=== PATIENT | male | born 1945 | race Caucasian/White ===

== ENCOUNTER → 2025-04-05 11:37 | Outpatient (CLI) | payer MEDICARE, SELFPAY ==
--- NOTE | ~2025-04-05 | XR_ITS ---
Clinical Indication: Shortness of breath PA and lateral views of the chest: Comparison: 10/28/2007 Findings: The lungs are clear, without evidence of focal consolidation or pleural effusion. Cardiome diastinal silhouette is within normal limits. Bones and soft tissues are unremarkable. Impression: Normal chest. Reviewed, dictated and finalized at location . Impression: Normal chest.
== END ==
PROVIDERS: PCP Family Medicine; Visit Provider Family Medicine
DX: R06.02 Shortness of breath (principal)
CPT/HCPCS: 71046

== ENCOUNTER 2025-04-07 11:46 | Inpatient (IN) | payer MEDICARE, SELFPAY ==
[2025-04-07] VITALS (9 sets, daily range): BP systolic 99–130; BP diastolic 57–72; PULSE 62–84; RESP 16–19; TEMP 36.4–36.6; O2SAT 97–100; BMI 23.1
--- NOTE | ~2025-04-07 | CT_ITS ---
CTA chest PE abdomen pel Ordering provider: Ollie Medeiros MD History: . Chest pain, sob, syncope, weight loss . Comparison: None. Technique: CT angiogram chest was performed following timed intravenous injection of contrast. Thin s lice axial images and reformatted coronal images were obtained. Three dimensional reformatted images of the chest were also obtained using a [employer] workstation. Also, CT of the abdomen and pelvis was pe rformed with IV contrast. . Automated exposure control and iterative reconstruction technique were e mployed. The dose-length product was 623.69 mGy-cm. 100 mL Omnipaque 350 was given IV. A FINDINGS: CHEST: --PULMONARY ARTERIES: No pulmonary embolus. --VISUALIZED THORACIC INLET: Normal. --MEDIASTINUM: Aorta/coronary arteries: Mild atheromatous disease. Heart/other: The heart is not enlarged. Lymph nodes: No mediastinal or hilar adenopathy. --LUNGS: Nodule is seen in the right middle lobe measuring 5 mm. 2 mm nodule is seen in the middle lobe. No acute masses. No infiltrates or effusions. No pneumothorax . --MUSCULOSKELETAL: Bones: Age appropriate degenerative changes of the spine. Superficial soft tissues: The superficial soft tissues are normal. ABDOMEN/PELVIS: --MUSCULOSKELETAL: Superficial soft tissues: The superficial soft tissues are normal. Bones: Age appropriate degenerative changes of the spine. Bilateral hip osteoarthritic changes. Pubic symphysitis. --UPPER ABDOMINAL ORGANS: Liver: Fat infiltration. Gallbladder: Normal. Spleen: Normal. Stomach/duodenum: Sliding hiatus hernia.E Pancreas: Normal. Adrenals: Normal. Kidneys: Normal. --PELVIC ORGANS: The bladder is slightly underfilled with thickened wall. Evaluation for cystitis adv ised. Enlarged prostate. No bladder stones. --BOWEL AND MESENTERY: Colon: No evidence of diverticulitis. Normal appendix. Small Bowel: Normal. No obstruction. Peritoneum/mesentery: No free air or free fluid. No mesenteric lymphadenopathy. --RETROPERITONEUM: Mild atheromatous disease of the abdominal aorta. No retroperitoneal lymphadenop athy. IMPRESSION: CHEST: 1. No pulmonary embolism. 2. No acute cardiopulmonary pathology. 3. Nodules in the right middle lobe. 6 months follow-up advised. ABDOMEN/PELVIS: 1. No evidence of appendicitis, diverticulitis or intestinal obstruction. 2. Sliding hiatus hernia. 3. Thickened wall of the urinary bladder which may indicate cystitis. Enlarged prostate. 4. Fat infiltration of the liver. Reviewed, dictated and finalized at location A.
--- NOTE | ~2025-04-07 | CT_ITS ---
EXAMINATION: CT brain wo con DATE: 04/07/2025 16:41 INDICATION: recurrent falls . TECHNIQUE: Computed tomography (CT) of the head was performed without intravenous contrast. The mA wa s adjusted according to patient size. Iterative reconstruction technique was employed. The dose-lengt h product was 681.00 mGy-cm. COMPARISON: None. FINDINGS: No acute intracranial hemorrhage or extra-axial fluid collection. No hydrocephalus, mass, or herniation. No acute ischemic infarct. Unremarkable dural venous sinus attenuation. No acute osseous abnormality. The aerated spaces are clear. Residual contrast enhancement from prior contrasted CT examination. Atherosclerotic intracranial calc ifications. Mild atrophy and chronic white matter change. IMPRESSION: No acute intracranial process. Reviewed, dictated and finalized at location K.
--- NOTE | ~2025-04-07 | XR_ITS ---
EXAMINATION: XR chest 2V 04/07/2025 12:36 INDICATION: Dizziness. Shortness of breath. PROCEDURE: AP portable chest COMPARISON: Comparison to multiple prior studies sequentially, with oldest reviewed study dated 07/22. FINDINGS: The lungs are clear. The cardiomediastinal silhouette is within normal limits. There are no pleural effusions. There is no pneumothorax suspected. IMPRESSION: 1: NO ACUTE CARDIOPULMONARY DISEASE. Reviewed, dictated and finalized at location B.
--- NOTE | 2025-04-07 11:52 | ECG_ITS ---
Test Date: 2025-04-07 11:57:02 Measurements Intervals [place] Rate: 57 P: 48 HI: 117 QRS: 17 QRSD: 87 T: 7 QT: 425 QTc: 415 Interpretive Statements SINUS BRADYCARDIA WITH SHORT HI INTERVAL LOW QRS VOLTAGE IN PRECORDIAL LEADS [QRS DEFLECTION < 1.0 mV IN CHEST LEADS] NONSPECIFIC T-WAVE ABNORMALITY ABNORMAL ECG No previous ECG available for comparison Electronically Signed On 04-07-2025 14:20:34 CDT by Prosper Armenta M.D.
[2025-04-07] MEDS: SODIUM CHLORIDE 0.9% IV 2,000 ML 999 ML IV CONT (13:16)
--- NOTE | 2025-04-07 13:32 | ECG_ITS ---
Test Date: 2025-04-07 13:35:39 Measurements Intervals [place] Rate: 68 P: 65 [place]: 126 QRS: 36 QRSD: 85 T: 32 QT: 369 QTc: 395 Interpretive Statements SINUS RHYTHM LOW QRS VOLTAGE [QRS DEFLECTION < 0.5/1.0 mV IN LIMB/CHEST LEADS] SEPTAL MYOCARDIAL INFARCTION , OF INDETERMINATE AGE [40+ ms Q WAVE IN V1/V2] ST AND T-WAVE ABNORMALITY CONSIDER INFEROLATERAL ISCHEMIA ABNORMAL ECG Compared to ECG 04/07/2025 11:57:[address] SEGMENT DEPRESSION IS SEEN Electronically Signed On 04-07-2025 14:22:59 CDT by Prosper Armenta M.D.
[2025-04-07 13:36] LABS: Hematocrit 31.7 % (42.0-52.0); Hemoglobin 11.2 g/dL (14.0-18.0); Immature Granulocyte Percent A 0.3 % (0-0.5); Lymphocytes Absolute Auto 0.75 K/mm3 (0.9-3.2); Mean Corpuscular HGB Conc 35.3 g/dl (32-36); Mean Corpuscular Hemoglobin 36.6 pg (26-34); Mean Corpuscular Volume 103.6 fl (80-100); Nucleated Red Blood Cells Absolute Auto 0.000 K/mm3 (0.0-0.012); Nucleated Red Blood Cells Perc 0.0 % (0.0-0.2); Platelet Count Result 202 k/mm3 (150-375); Red Blood Count 3.06 M/mm3 (4.6-6.20); White Blood Count 8.7 K/mm3 (4.5-10.0)
--- NOTE | 2025-04-07 13:51 | ECG_ITS ---
Test Date: 2025-04-07 14:15:42 Measurements Intervals [place] Rate: 81 P: 61 [place]: 124 QRS: 31 QRSD: 86 T: 40 QT: 392 QTc: 457 Interpretive Statements SINUS RHYTHM WITH OCCASIONAL VENTRICULAR PREMATURE COMPLEXES WITH OCCASIONAL SUPRAVENTRICULAR PREMATURE COMPLEXES RIGHT ATRIAL ENLARGEMENT LOW QRS VOLTAGE [QRS DEFLECTION < 0.5/1.0 mV IN LIMB/CHEST LEADS] SEPTAL MYOCARDIAL INFARCTION , PROBABLY OLD [40+ ms Q WAVE IN V1/V2] ABNORMAL ECG Compared to ECG 04/07/2025 13:35:39 PVCS ARE NOW SEEN Electronically Signed On 04-07-2025 14:24:56 CDT by Prosper Armenta M.D.
[2025-04-07 14:00] LABS: Alanine Aminotransferase 28 U/L (6-50); Albumin Level 3.3 g/dL (3.5-5.1); Alkaline Phosphatase 82 U/L (38-126); Aspartate Amino Transferase 45 U/L (17-59); Bilirubin,Total 0.9 mg/dL (0.2-1.3); Blood Urea Nitrogen 18 mg/dL (9-20); Calcium 8.4 mg/dL (8.4-10.2); Carbon Dioxide 24 mmol/L (22-30); Estimated CRCL calculation 33 ml/min; Estimated Glomerular Filt Rate 46; Glucose 129 mg/dL (65-110); Total Protein 5.8 g/dL (6.3-8.2)
--- NOTE | 2025-04-07 14:00 | PC.NURSE ---
Patient reports sudden onset chest pain and SOB. Per verbal order patient gets repead EKG, nitro x3 doses at every 5 minutes, oxygen and dose of aspirin at this time.
--- NOTE | 2025-04-07 14:02 | PC.NURSE ---
1st dose of Nitro @ 1358 - pain decreased but not gone away, patient states that he arms are tingling. 2nd does of Nitro @ 1403 - 0/10 chest pain at this time. 3rd does of Nitro @ 1408 - held due to patient reporting 0/10 chest pain after second dose
[2025-04-07 14:08] LABS: Anion Gap 7 mmol/L (4-12); Chloride 101 mmol/L (98-107); Potassium 3.2 mmol/L (3.4-5.0); Sodium 132 mmol/L (137-145)
[2025-04-07] MEDS: NITROGLYCERIN SL 0.4 MG TABLET SUBLINGUAL (14:08)
[2025-04-07 14:11] LABS: Troponin I < 0.012 ng/mL (0.000-0.034)
[2025-04-07] MEDS: ASPIRIN 81 MG CHEWABLE TABLET 324 MG PO (14:11)
--- NOTE | 2025-04-07 14:13 | ECG_ITS ---
Test Date: 2025-04-07 13:52:47 Measurements Intervals [place] Rate: 79 P: 67 [place]: 134 QRS: 37 QRSD: 88 T: 135 QT: 387 QTc: 445 Interpretive Statements SINUS RHYTHM WITH SINUS ARRHYTHMIA LOW QRS VOLTAGE [QRS DEFLECTION < 0.5/1.0 mV IN LIMB/CHEST LEADS] SEPTAL MYOCARDIAL INFARCTION , OF INDETERMINATE AGE [40+ ms Q WAVE IN V1/V2] MODERATE T-WAVE ABNORMALITY, CONSIDER LATERAL ISCHEMIA [-0.1+ mV T-WAVE IN I/aVL/V5/V6] ABNORMAL ECG Compared to ECG 04/07/2025 13:35:39 No significant changes Electronically Signed On 04-08-2025 08:42:08 CDT by Prosper Armenta M.D.
--- NOTE | 2025-04-07 15:33 | ECG_ITS ---
Test Date: 2025-04-07 14:59:01 Measurements Intervals [place] Rate: 78 P: 64 ID: [id number] QRS: 7 QRSD: 86 T: 24 QT: 397 QTc: 453 Interpretive Statements SINUS RHYTHM PREVIOUS SEPTAL INFARCTION, LOW QRS VOLTAGE ABNORMAL ECG Compared to ECG 04/07/2025 14:15:42 Ventricular premature complex(es) no longer present Electronically Signed On 04-08-2025 08:44:08 CDT by Prosper Armenta M.D.
--- NOTE | 2025-04-07 16:14 | ED_ITS ---
HPI - General Adult General Chief complaint: Syncope Stated complaint: syncopy Time Seen by Provider: 04/07/25 11:59 History of Present Illness HPI narrative: This is a 79-year-old male with history of hypertension presenting for recurrent syncope. Patient says that he is passed out about 10 times a month since December Patient is frequently dizzy or lightheaded is precipitated by standing up. Patient has not sustained any serious injuries via falls during this time. Patient says all of this started after tyson COVID in December of this year. He states that he has had significant unintentional weight loss of around 20 lb. He says he does not have an appetite and has early satiety. His hypertension meds have not been adjusted since his weight loss any is currently taking losartan/hydrochlorothiazide and tamsulosin Patient also notes that he has chest pain that feels like pressure. associated with bilateral hand tingling that occurs once per day for several months. It is not triggered by exertion and he says it seems to be random. Typically resolved on his own. 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 Patient came to the hospital today because he was at the [employer] with some of his friends who had shot of fireball but then had a syncopal event. Patient notes that he had an episode of nausea vomiting and diarrhea yesterday. EMS was called and he was then brought to the hospital. Related Data Allergies Allergy/AdvReac Type Severity Reaction Status Date / Time erythromycin base AdvReac Unknown Anxiety Verified 04/05/25 09:48 lisinopril AdvReac Unknown Cough Verified 04/05/25 09:48 [facility] Family History Family History Mother Lung cancer Social History Social History Smoking status: Former smoker Exam 2 Narrative: APPEARANCE: No apparent distress. Head: atraumatic. EYES: EOMI, NOSE: Atraumatic NECK: Trachea midline RESPIRATORY: No increased rate of breathing clear to auscultation CARDIOVASCULAR: RRR, no peripheral edema ABDOMINAL: Non-distended, soft nontender MUSCULOSKELETAl: No obvious deformities NEURO: Alert. Moving 4/4 extremities SKIN:: Warm, dry. Normal color PSYCHIATRIC: Normal affect Course Vital Signs Vital signs: Vital Signs Temperature 97.6 F 04/07/25 11:43 Pulse Rate 81 04/07/25 11:43 Respiratory Rate 18 04/07/25 11:43 Blood Pressure 99/57 L 04/07/25 11:43 Pulse Oximetry 100 04/07/25 11:43 Oxygen Delivery Room Air 04/07/25 11:43 Temperature 97.6 F 04/07/25 11:43 Pulse Rate 78 04/07/25 16:55 Respiratory Rate 19 04/07/25 16:55 Blood Pressure 105/57 L 04/07/25 16:55 Pulse Oximetry 97 04/07/25 16:55 Oxygen Delivery Room Air 04/07/25 11:43 Medical Decision Making MDM Narrative Medical decision making narrative: -Course: 79-year-old male presenting for multiple complaints including persistent orthostatic symptoms, unexpected weight loss and recurrent chest pain. Patient had an episode of chest pain while in the emergency department. While his 1st EKG showed normal sinus rhythm, EKG taking during his episode of chest pain showed ST depressions in inferior and lateral leads. Patient received nitro,oxygen and aspirin with resolution of his pain and his EKG symptoms. Initial troponin undetectable. Second troponin is pending. Geovany consulted. No heparin at this time. In regards to his recurrent syncope, patient's blood pressures were low on arrival. He is still on losartan hydrochlorothiazide and tamsulosin all of which will lower his blood pressure. This would have been worsened by his N/V/D yesterday. Given his weight loss he may need to readjust his hypertension meds if he is still symptomatic despite fluid resusc. Patient was given 2 L of fluid with improvement in blood pressure. Patient has been developing recurrent chest pain with concurrent EKG changes during the episodes. I think cardiac syncope is less likely but that can be explored during this admission. CT PE w/ abdomen pelvis did not reveal a causative finding of his symptoms. White count 8.7. Hemoglobin 11.2 with an MCV of 103. This is a 2 point drop from 2 months ago. Patient denies also any source of bleeding. Potassium is 3.2 which is been repleted orally. CT brain unremarkable. Chest x-ray was clear. -DDX includes but is not limited to: Orthostatic hypotension, vasovagal syncope, cardiac syncope, alcohol intoxication, symptomatic anemia -Independent interpretation of studies: CT PE w/ abdomen pelvis did not reveal a causative finding of his symptoms. White count 8.7. Hemoglobin 11.2 with an MCV of 103. This is a 2 point drop from 2 months ago. Patient denies also any source of bleeding. Potassium is 3.2 which is been repleted orally. CT brain unremarkable. Chest x-ray was clear. Vital Signs Vital Signs: Vital Signs Temperature 97.6 F 04/07/25 11:43 Pulse Rate 81 04/07/25 11:43 Respiratory Rate 18 04/07/25 11:43 Blood Pressure 99/57 L 04/07/25 11:43 Pulse Oximetry 100 04/07/25 11:43 Oxygen Delivery Room Air 04/07/25 11:43 Temperature 97.6 F 04/07/25 11:43 Pulse Rate 78 04/07/25 16:55 Respiratory Rate 19 04/07/25 16:55 Blood Pressure 105/57 L 04/07/25 16:55 Pulse Oximetry 97 04/07/25 16:55 Oxygen Delivery Room Air 04/07/25 11:43 Lab Data 04/07/25 13:27 04/07/25 13:27 Labs: Lab Results 04/07/25 Range/Units 13:27 WBC 8.7 (4.5-10.0) K/mm3 RBC 3.06 L (4.6-6.20) M/mm3 Hgb 11.2 L (14.0-18.0) g/dL Hct 31.7 L (42.0-52.0) % MCV 103.6 H (80-100) fl MCH 36.6 H (26-34) pg MCHC 35.3 (32-36) g/dl RDW 12.8 (11.5-14.5) % Plt Count 202 (150-375) k/mm3 MPV 10.2 (7.4-10.4) fl Immature Gran % (Auto) 0.3 (0-0.5) % Neut % (Auto) 83.3 H (45.5-73.1) % Lymph % (Auto) 8.6 L (18.3-44.2) % Hayes % (Auto) 7.0 (2.6-8.5) % Eos % (Auto) 0.3 (0-4.4) % Baso % (Auto) 0.5 (0.2-1.2) % Lymph # (Auto) 0.75 L (0.9-3.2) K/mm3 Hayes # (Auto) 0.6 (0.1-0.6) K/mm3 Eos # (Auto) 0.0 (0-0.3) K/mm3 Baso # (Auto) 0.0 (0.0-0.1) K/mm3 Abs Immat Gran (auto) 0.03 (0.00-0.031) K/mm3 Absolute Neuts (auto) 7.2 H (1.3-6.7) K/mm3 Absolute Nucleated RBC 0.000 (0.0-0.012) K/mm3 Nucleated RBC % 0.0 (0.0-0.2) % Sodium 132 L (137-145) mmol/L Potassium 3.2 L (3.4-5.0) mmol/L Chloride 101 (98-107) mmol/L Carbon Dioxide 24 (22-30) mmol/L Anion Gap 7 (4-12) mmol/L BUN 18 (9-20) mg/dL Creatinine 1.48 H (0.7-1.3) mg/dL Estim Creat Clear Calc 33 ml/min Estimated GFR 46 L (59 - ) Glucose 129 H (65-110) mg/dL Calcium 8.4 (8.4-10.2) mg/dL Total Bilirubin 0.9 (0.2-1.3) mg/dL AST 45 (17-59) U/L ALT 28 (6-50) U/L Alkaline Phosphatase 82 (38-126) U/L Troponin I < 0.012 (0.000-0.034) ng/mL Total Protein 5.8 L (6.3-8.2) g/dL Albumin 3.3 L (3.5-5.1) g/dL Ethyl Alcohol < 10 (<10) mg/dL Discharge Plan Discharge Clinical Impression: Syncope, Chest pain, Dehydration Patient Disposition: Still a Patient Condition: Stable Patient Language: Bangladeshi Prescriptions: No Action losartan-hydrochlorothiazide 100-12.5 mg tablet 1 tablet PO DAILY Qty: 90 3RF tamsulosin 0.4 mg capsule 0.4 mg PO DAILY Qty: 180 1RF Rx Instructions: take 1-2 capsules daily. Follow-up/Referrals: Dinah Mckenzie DO [Primary Care Provider] -
[2025-04-07] MEDS: POTASSIUM CHLORIDE 20 MEQ PACKET (FOR LIQUID) 40 MEQ PO (16:32)
[2025-04-07 18:04] LABS: Troponin I < 0.012 ng/mL (0.000-0.034)
--- NOTE | 2025-04-07 18:47 | ADMGEN ---
This patient, Prosper Mir, was admitted to Medical Room 250-01. Patient/family oriented to hospital policies and general routines including ID bracelet, bed and alarms, visiting hours, pain management, procedures, bathroom and other care routines, personal items, smoking policy, room service/diet, and visiting hours. Information on how to activate the Rapid Response Team has been discussed. Patient/Family are encouraged to report perceived risks to care and to ask questions if they do not understand what they are told or what they should do.
[2025-04-07 20:23] LABS: Troponin I 0.014 ng/mL (0.000-0.034)
[2025-04-08] VITALS (13 sets, daily range): BP systolic 100–131; BP diastolic 53–62; PULSE 54–91; RESP 14–18; TEMP 36.3–36.6; O2SAT 96–100
--- NOTE | 2025-04-08 07:22 | PM.IMHP ---
H&P: HPI History of Present Illness Date/Time: 04/08/25 07:22 <Tanya Melendez, COLOR BLENDER - Last Filed: 04/08/25 15:26> Chief Complaint: Syncope and Chest pain <Arcenio Fortune, Student - Last Filed: 04/08/25 15:17> Narrative: 79 year old male with past medical history of HTN, BPH, and hyperlipidemia presents to the hospital complaining of multiple syncope events and chest pressure. Additionally, patient has unintentionally lost approximately 20 lbs over the last 8 months. Majority of weight loss experienced in the last 3 months following COVID in early December. Endorses decrease in appetite and early satiety since recovery from COVID. Syncope events started shortly after December and patient estimates 10 episodes of syncope. Notes dizziness and lightheaded daily if standing up to quickly. Pt HTN medications have not been adjusted in the last 10 years. Endorses chest pain/pressure that occurs intermittently at rest and with activity. Denies cardiac history. Brother has CAD, but no family history of cardiac /conditions. Chest pain will lead to bilateral arm & hand tingling that resolves on its own. Shortness of breath with chest pressure, but otherwise not experienced. Denies abdominal pain, recent N/V, vision abnormalities, urinary or bowel movement pain or abnormalities, lower extremity symptoms/edema, fever, chills, and night sweats. N/V will occur if patient over eats which he may try intentionally, occasional, due to recent weight loss. Smokes 3-4 cigars/day, drinks 1-2 drinks approx 3/week, primarily whiskey. Denies illicit drug use. Recently seen in PCP office on 04/05/25 due to chest pain & weight loss. Noted normal PSA from 07/2024. normal A1C, TSH, slightly elevated AST & Cr, stable CKD, & mildly enlarged thyroid. Thyroid US ordered, but not competed. Prior PCP notes from 2023 note colonoscopy from 07/2013 with tubular adenomas. Patient declines further evaluation via colonoscopy. Briefly discussed possible need to repeat colonoscopy due to prior findings. Patient check stools frequently for blood or abnormalities and states he has not observed any. In the ED, patient presented via EMS after syncope event at [facility]. Serial EKGs were conducted which showed ST depressions in inferior and lateral leads following chest pain. Troponin undetectable. Chest pain resolved following nitro, oxygen, and aspirin. Given 2L of IVF d/t low BP (99/57). CT PE w/ abdomen pelvis did not reveal a causative finding of his symptoms. White count 8.7. Hemoglobin 11.2 with an MCV of 103. This is a 2 point drop from 2 months ago. Patient denies also any source of bleeding. Potassium is 3.2 which is been repleted orally. CT brain unremarkable. Chest x-ray was clear. Pt is seen and examined. He is comfortable, calm, resting in bed. Denies chest pain, reports feeling 100% better. <Tanya Melendez, COLOR BLENDER - Last Filed: 04/08/25 15:26> 79 year old male with past medical history of HTN, BPH, and hyperlipidemia presents to the hospital complaining of multiple syncope events and chest pressure. Additionally, patient has unintentionally lost approximately 20 lbs over the last 8 months. Majority of weight loss experienced in the last 3 months following COVID in early December. Endorses decrease in appetite and aearly satiety since recovery from COVID. Syncope events started shortly after December and patient estimates 10 episodes of syncope. Notes dizziness and lightheaded daily if standing up to quickly. Pt HTN medications have not been adjusted in the last 10 years. Endorses chest pain/pressure that occurs intermittently at rest and with activity. Denies cardiac history. Brother has CAD, but no family history of cardiac /conditions. Chest pain will lead to bilateral arm & hand tingling that resolves on its own. Shortness of breath with chest pressure, but otherwise not experienced. Denies abdominal pain, recent N/V, vision abnormalities, urinary or bowel movement pain or abnormalities, lower extremity symptoms/edema, fever, chills, and night sweats. N/V will occur if patient over eats which he may try intentionally, occasional, due to recent weight loss. Smokes 3-4 cigars/day, drinks 1-2 drinks approx 3/week, primarily whiskey. Denies illicit drug use. Recently seen in PCP office on 04/05/25 due to chest pain & weight loss. Noted normal PSA from 07/2024. normal A1C, TSH, slightly elevated AST & Cr, stable CKD, & mildly enlarged thyroid. Thyroid US ordered, but not competed. Prior PCP notes from 2023 note colonoscopy from 07/2013 with tubular adenomas. Patient declines further evaluation via colonoscopy. Briefly discussed possible need to repeat colonoscopy due to prior findings. Patient check stools frequently for blood or abnormalities and states he has not observed any. In the ED, patient presented via EMS after syncope event at [facility]. Serial EKGs were conducted which showed ST depressions in inferior and lateral leads following chest pain. Troponin undetectable. Chest pain resolved following nitro, oxygen, and aspirin. Given 2L of IVF d/t low BP (99/57). CT PE w/ abdomen pelvis did not reveal a causative finding of his symptoms. White count 8.7. Hemoglobin 11.2 with an MCV of 103. This is a 2 point drop from 2 months ago. Patient denies also any source of bleeding. Potassium is 3.2 which is been repleted orally. CT brain unremarkable. Chest x-ray was clear. <Arcenio Fortune Student - Last Filed: 04/08/25 15:17> Review of Systems Review of Systems: All systems reviewed & are unremarkable except as noted in HPI and below <Arcenio Fortune Student - Last Filed: 04/08/25 15:17> FOR[facility]LY [facility], [facility]–1983 Family History Family History: Family History Mother Lung cancer <Tanya Melendez APRN - Last Filed: 04/08/25 15:26> Social History Social History: Social History Smoking status: Current every day smoker Tobacco type: cigars Second hand tobacco smoke exposure: No Alcohol intake: current Drinks per week: 6 Substance use: never Do You Feel Safe in your Home?: Yes Lack of Transportation: No Lack of Food: Never True Current Housing: I Have Housing Concerned About Future Housing: No Difficulty Paying Gas/Electric Bills: No Difficulty Paying for Meds: No Currently Unemployed: No Education: High School Diploma/GED Difficulty w/ Childcare or Family Care: No Spiritual care concerns: No <Tanya Melendez APRN - Last Filed: 04/08/25 15:26> Meds Home Medications and Allergies Home medications: Home Medications ?Medication ?Instructions ?Recorded ?Confirmed ?Type losartan 100 1 tablet PO DAILY HTN #90 tabs 06/29/24 04/07/25 Rx mg-hydrochlorothiazide 12.5 mg tablet tamsulosin 0.4 mg capsule 0.4 mg PO DAILY #180 caps 02/09/25 04/07/25 Rx <Tanya Melendez APRN - Last Filed: 04/08/25 15:26> Allergies/Adverse reactions: Allergies Allergy/AdvReac Type Severity Reaction Status Date / Time erythromycin base AdvReac Unknown Anxiety Verified 04/05/25 09:48 lisinopril AdvReac Unknown Cough Verified 04/05/25 09:48 <Tanya Melendez, COLOR BLENDER - Last Filed: 04/08/25 15:26> Vital Signs Vital Signs - 24 hr 04/07/25 11:43 04/07/25 12:46 04/07/25 13:05 Temperature 97.6 F Pulse Rate 81 62 65 Respiratory Rate 18 18 Blood Pressure 99/57 L 106/70 Pulse Oximetry 100 100 Oxygen Delivery Room Air 04/07/25 14:01 04/07/25 15:01 04/07/25 16:55 Temperature Pulse Rate 84 83 78 Respiratory Rate 16 18 19 Blood Pressure 130/68 109/62 105/57 L Pulse Oximetry 100 100 97 Oxygen Delivery 04/07/25 18:20 04/07/25 20:00 04/07/25 20:00 Temperature Pulse Rate 70 74 Respiratory Rate 18 Blood Pressure 119/72 Pulse Oximetry 100 Oxygen Delivery Room Air 04/07/25 21:20 04/08/25 00:00 04/08/25 00:29 Temperature 97.8 F 97.7 F Pulse Rate 70 58 L 75 Respiratory Rate 16 16 Blood Pressure 105/59 L 131/62 Pulse Oximetry 99 98 Oxygen Delivery 04/08/25 04:00 04/08/25 04:59 Temperature 97.8 F Pulse Rate 64 60 Respiratory Rate 14 Blood Pressure 100/53 L Pulse Oximetry 100 Oxygen Delivery <Tanya Melendez, COLOR BLENDER - Last Filed: 04/08/25 15:26> Exam Narrative: Const: General - comfortable and no acute distress HEENT: moist mucous membranes, PERRLA, EOMI, Supple without JVD and lymphadenopathy, mild thyroid enlargement Resp: normal effort, rate. Clear to auscultation. No wheezing, rhonchi, or rales. Cardio: Regular rate & Rhythm. Normal S1 & S2. No gallops, murmurs or rubs. Capillary refill 2-3 seconds Abdomen: Non-distended, soft, normal bowel sounds, no pulsatile masses Neuro: A&Ox4, CN 2-12 grossly intact Skin: warm, dry, intact, no rash, erythema, or lesions Extremity: No cyanosis, clubbing, or edema present. Pulses palpable and normal bilaterally. Active ROM to all four extremities. Psych: pleasant, cooperative, normal speech & affect <Arcenio Fortune, Student - Last Filed: 04/08/25 15:17> Const: General: comfortable <Tanya Melendez APRN - Last Filed: 04/08/25 15:26> H&P: Results Labs Labs: Short CBC 04/07/25 Range/Units 13:27 WBC 8.7 (4.5-10.0) K/mm3 Hgb 11.2 L (14.0-18.0) g/dL Hct 31.7 L (42.0-52.0) % Plt Count 202 (150-375) k/mm3 BMP 04/07/25 13:27 Sodium 132 L Potassium 3.2 L Chloride 101 Carbon Dioxide 24 BUN 18 Creatinine 1.48 H Glucose 129 H Calcium 8.4 Cardiac Enzymes 04/07/25 04/07/25 04/07/25 Range/Units 13:27 17:20 19:38 Troponin I < 0.012 < 0.012 0.014 (0.000-0.034) ng/mL Liver Function 04/07/25 Range/Units 13:27 Total Bilirubin 0.9 (0.2-1.3) mg/dL AST 45 (17-59) U/L ALT 28 (6-50) U/L Alkaline Phosphatase 82 (38-126) U/L Albumin 3.3 L (3.5-5.1) g/dL <Tanya Melendez APRN - Last Filed: 04/08/25 15:26> Assessment and Plan Assessment and plan (1) Syncope: Code(s): R55 - Syncope and collapse <Tanya Melendez APRN - Last Filed: 04/08/25 15:26> Status: Acute <Tanya Melendez APRN - Last Filed: 04/08/25 15:26> Assessment and Plan: 04/08: several syncope events over the last 3 months with chest pain/pressure intermittently. Recent unintentional [address] PE w/ abdomen pelvis did not reveal a causative finding of his symptoms. White count 8.7. Hemoglobin 11.2 with an MCV of 103. 2 point drop from 2 months ago. denies any source of bleeding. Potassium was 3.2 and currently being treated. CT brain unremarkable. Chest x-ray was clear. - DDx: orthostatic hypotension, vasovagal syncope, cardiac syncope, medication induced syncope, thyroid pathology vs other - recent weight loss but BP meds not adjusted- could be causing symptoms - Complete orthostatics - check TSH, Mg, CBC - trend CMP - continue KCl oral supplement. <Tanya Melendez APRN - Last Filed: 04/08/25 15:26> 04/08: several syncope events over the last 3 months with chest pain/pressure intermittently. Recent unintentional [address] PE w/ abdomen pelvis did not reveal a causative finding of his symptoms. White count 8.7. Hemoglobin 11.2 with an MCV of 103. 2 point drop from 2 months ago. denies any source of bleeding. Potassium was 3.2 and currently being treated. CT brain unremarkable. Chest x-ray was clear. - DDx: orthostatic hypotension, vasovagal syncope, cardiac syncope, medication induced syncope, thyroid pathology - Complete orthostatics - check TSH, Mg, CBC - trend BMP - continue KCl oral supplement. <Cruz Richard - Last Filed: 04/08/25 15:17> (2) Chest pain: Code(s): R07.9 - Chest pain, unspecified <Tanya Melendez APRN - Last Filed: 04/08/25 15:26> Status: Acute <Tanya Melendez COLOR BLENDER - Last Filed: 04/08/25 15:26> Assessment and Plan: 04/08: Intermittent ischemic type chest pain with and without activity for approx 6 months. accompanied by tingling in bilateral arms/hands. No cardiac history or family history. 1 brother with CAD. - Cardiology consulted: symptoms however are of significant concern and are associated with dynamic ST segment depression noted on his electrocardiogram and telemetry in the emergency room. Plan for diagnostic angiography on Thursday. - continue tele monitoring <Cruz Richard - Last Filed: 04/08/25 15:17> (3) Essential (primary) hypertension: Code(s): I10 - Essential (primary) hypertension <Tanya Melendez COLOR BLENDER - Last Filed: 04/08/25 15:26> Status: Acute <Tanya Melendez COLOR BLENDER - Last Filed: 04/08/25 15:26> Assessment and Plan: 04/08: BP low upon arrival of ED. Treated with IVF. BP continues to trend low. - hold losartan/HCTZ - continue to monitor <Arcenio Fortune Student - Last Filed: 04/08/25 15:17> (4) Benign prostatic hyperplasia with lower urinary tract symptoms: Code(s): N40.1 - Benign prostatic hyperplasia with lower urinary tract symptoms <Tanya Melendez COLOR BLENDER - Last Filed: 04/08/25 15:26> Status: Acute <Tanya Melendez COLOR BLENDER - Last Filed: 04/08/25 15:26> Assessment and Plan: 04/08 - continue tamsulosin - increase in frequency of urination at baseline. - Denies burning, pain, discoloration, or smell with urination <Arcenio Fortune Student - Last Filed: 04/08/25 15:17> (5) Mixed hyperlipidemia: Code(s): E78.2 - Mixed hyperlipidemia <Tanya Melendez COLOR BLENDER - Last Filed: 04/08/25 15:26> Status: Acute <Tanya Melendez COLOR BLENDER - Last Filed: 04/08/25 15:26> Assessment and Plan: - elevated triglycerides seen on most recent Lipid panel from 08/08/2024 - No treatment currently. <Cruz Richard - Last Filed: 04/08/25 15:17> Assessment and Plan: heart healthy diet. SCD/Pneumatics for DVT prophylactics until angiography. Switch to Lovenox after procedure. Full code <Cruz Richard - Last Filed: 04/08/25 15:17> Quality VTE Prophylaxis VTE prophylaxis: mechanical ordered <Tanya Melendez COLOR BLENDER - Last Filed: 04/08/25 15:26> Hospitalist MIPS Advance Care Plan I have confirmed that the patient's Advanced Care Plan is present, code status is documented, or surrogate decision maker is listed in patient medical record.: Yes <Tanya Melendez, COLOR BLENDER - Last Filed: 04/08/25 15:26> Medication Reconciliation I have utilized all available resources to obtain, update and review the patients current medications (includes all prescriptions, OTC, herbals, cannabis, and nutritional supplements).: Yes <Tanya Melendez, COLOR BLENDER - Last Filed: 04/08/25 15:26>
--- NOTE | 2025-04-08 10:43 | PM.CNCAR ---
Assessment and Plan Assessment and plan (1) Chest pain: Code(s): R07.9 - Chest pain, unspecified Status: Acute Plan This is a 79-year-old man who has hypertension and no previous cardiac history he is having episodes of intermittent nonexertional but ischemic type chest pain for about 6 months. There is a history of coronary disease in his 1 of his younger brothers but no family history of premature ischemic heart disease. He has been feeling poorly since a coronavirus infection in October and November of this year. Because of the poor appetite that has followed this he has lost some weight and he does have some decline in his renal function with rise in creatinine from is previous normal baseline. The symptoms however are of significant concern and are associated with dynamic ST segment depression noted on his electrocardiogram and telemetry in the emergency room. In this setting we should proceed diagnostic angiography. I discussed the reasoning for that in the procedure along with risks he is willing to proceed with this. It is not an emergency the symptoms have been going on for about 6 months. We will arrange for this on Thursday. Further recommendations will be forthcoming the results of his angiogram Prosper Armenta MD [facility] History of Present Illness History of Present Illness Consult date/time: 04/08/25 10:43 Reason For Visit: Recurrent Syncope Narrative: This is a 79-year-old man who I am seeing at the request of the hospitalist in consultation because of episodes of lightheadedness, what sounds like near syncope and also episodes of intermittent chest pain. The patient states he was enjoying fairly good health was taking medicine for hypertension but did not really have much in the way of medical problems otherwise and has been not doing well since he had a coronavirus infection in November of this year. His COVID infection resulted in the sensation of coughing loss of taste and smell and generalized weakness. Most of the symptoms have resolved after that and his taste and smell have returned but he has been feeling poorly with lack of appetite poor p.o. intake and early satiety. He also has done some vomiting of food if he eats more than small amount at a short period of time he has not had any of the symptoms prior to having COVID. Predating this he is also noticing symptoms of chest pain. He reports that he has been having symptoms of a intermittent relatively severe moderate to severe pressure-like substernal pain that happens in a nonexertional fashion. He says sometimes this will happen 2 or 3 times a day and then he med may have a week or 2 between episodes. This symptom is not occurring in an exertional fashion he does not have any DELEON orthopnea PND or edema. He has never had cardiac problems in the past. He had 1 of these episodes in the emergency room while he was being evaluated yesterday. He had 5 electrocardiograms done while he was down there in the ER which demonstrate nonspecific but variable amounts of inferolateral ST segment depression and 1 of the ECGs demonstrated some ventricular irritability. Because of this I am asked to see him in consultation. The symptoms of intermittent chest pain he believes have been going on for about 6 months. Because of low blood pressure his antihypertensive which has been losartan with hydrochlorothiazide has been on hold. His blood pressure is currently normal. He is resting comfortably in bed and does not have any other complaints. The episodes of chest pain are typically associated with a sense of dyspnea sometimes diaphoresis and paresthesias in the upper extremities bilaterally. Review of Systems Constitutional: Constitutional: Reports fatigue and Reports lethargy Eyes: Eyes: Reports no additional eye complaints ENT: Reports system reviewed and no additional complaints, except as documented Cardiovascular: Cardiovascular: Reports as per HPI and Reports chest pain Respiratory: Respiratory: Reports no additional respiratory complaints Gastrointestinal: Gastrointestinal: Reports as per HPI and Reports vomiting Musculoskeletal: Musculoskeletal: Reports no additional musculoskeletal complaints Integumentary/Breasts: Skin/Breast: Reports system reviewed and no additional complaints, except as docu Neurologic: Reports system reviewed and no additional complaints, except as documented Endocrine: Endocrine: Reports no additional endocrine complaints Hematologic/Lymphatic: Hematologic/Lymphatic: Reports no additional hematologic/lymphatic complaints Allergic/Immunologic: Allergic/Immunologic: Reports no additional allergic/immunologic complaints PENDING SALE TO [facility] Family History Family History Mother Lung cancer Social History Social History Smoking status: Current every day smoker Tobacco type: cigars Second hand tobacco smoke exposure: No Alcohol intake: current Drinks per week: 6 Substance use: never Do You Feel Safe in your Home?: Yes Lack of Transportation: No Lack of Food: Never True Current Housing: I Have Housing Concerned About Future Housing: No Difficulty Paying Gas/Electric Bills: No Difficulty Paying for Meds: No Currently Unemployed: No Education: High School Diploma/GED Difficulty w/ Childcare or Family Care: No Spiritual care concerns: No Meds Home Medications and Allergies Home Medications ?Medication ?Instructions ?Recorded ?Confirmed ?Type losartan 100 1 tablet PO DAILY HTN #90 tabs 06/29/24 04/07/25 Rx mg-hydrochlorothiazide 12.5 mg tablet tamsulosin 0.4 mg capsule 0.4 mg PO DAILY #180 caps 02/09/25 04/07/25 Rx Allergies Allergy/AdvReac Type Severity Reaction Status Date / Time erythromycin base AdvReac Unknown Anxiety Verified 04/05/25 09:48 lisinopril AdvReac Unknown Cough Verified 04/05/25 09:48 Vital Signs Vital Signs - 24 hr 04/07/25 11:43 04/07/25 12:46 04/07/25 13:05 Temperature 36.4 C Pulse Rate 81 62 65 Respiratory Rate 18 18 Blood Pressure 99/57 L 106/70 Pulse Oximetry 100 100 Oxygen Delivery Room Air 04/07/25 14:01 04/07/25 15:01 04/07/25 16:55 Temperature Pulse Rate 84 83 78 Respiratory Rate 16 18 19 Blood Pressure 130/68 109/62 105/57 L Pulse Oximetry 100 100 97 Oxygen Delivery 04/07/25 18:20 04/07/25 20:00 04/07/25 20:00 Temperature Pulse Rate 70 74 Respiratory Rate 18 Blood Pressure 119/72 Pulse Oximetry 100 Oxygen Delivery Room Air 04/07/25 21:20 04/08/25 00:00 04/08/25 00:29 Temperature 36.6 C 36.5 C Pulse Rate 70 58 L 75 Respiratory Rate 16 16 Blood Pressure 105/59 L 131/62 Pulse Oximetry 99 98 Oxygen Delivery 04/08/25 04:00 04/08/25 04:59 04/08/25 08:48 Temperature 36.6 C Pulse Rate 64 60 Respiratory Rate 14 Blood Pressure 100/53 L Pulse Oximetry 100 Oxygen Delivery Room Air 04/08/25 08:48 Temperature Pulse Rate 72 Respiratory Rate 16 Blood Pressure 115/62 Pulse Oximetry 96 Oxygen Delivery Exam Const: General: comfortable and no acute distress Other: Pleasant white male appearing his stated age watching television comfortable and cooperative no distress or complaints currently HENMT: Mouth: Yes moist mucous membranes Eyes: Sclera: sclerae normal Neck: Neck: supple and no JVD Resp: Effort & Inspection: normal respiratory effort Auscultation: clear to auscultation bilaterally Cardio: Rate: regular rate Rhythm: regular rhythm Other: No murmur no gallop GI: GI Palp: Yes Soft to palpation Auscultation: normal bowel sounds Skin: General skin exam: normal color Neuro: Other: Alert and oriented x3 Extrem: Other: No pitting edema, distal pulses are intact Results Labs and Meds 04/07/25 13:27 04/07/25 13:27 Lab results: Cardiac Enzymes 04/07/25 04/07/25 04/07/25 Range/Units 13: 17:20 19:38 AST 45 (17-59) U/L Troponin I < 0.012 < 0.012 0.014 (0.000-0.034) ng/mL CBC 04/07/25 Range/Units 13:27 WBC 8.7 (4.5-10.0) K/mm3 RBC 3.06 L (4.6-6.20) M/mm3 Hgb 11.2 L (14.0-18.0) g/dL Hct 31.7 L (42.0-52.0) % Plt Count 202 (150-375) k/mm3 Lymph # (Auto) 0.75 L (0.9-3.2) K/mm3 [place] # (Auto) 0.6 (0.1-0.6) K/mm3 Eos # (Auto) 0.0 (0-0.3) K/mm3 Baso # (Auto) 0.0 (0.0-0.1) K/mm3 Comprehensive Metabolic Panel 04/07/25 Range/Units 13:27 Sodium 132 L (137-145) mmol/L Potassium 3.2 L (3.4-5.0) mmol/L Chloride 101 (98-107) mmol/L Carbon Dioxide 24 (22-30) mmol/L BUN 18 (9-20) mg/dL Creatinine 1.48 H (0.7-1.3) mg/dL Glucose 129 H (65-110) mg/dL Calcium 8.4 (8.4-10.2) mg/dL AST 45 (17-59) U/L ALT 28 (6-50) U/L Alkaline Phosphatase 82 (38-126) U/L Total Protein 5.8 L (6.3-8.2) g/dL Albumin 3.3 L (3.5-5.1) g/dL Intake and Output 04/07/25 04/08/25 04/08/25 23:59 07:59 15:59 Intake Total 350 200 Balance 350 200 Intake: Oral 350 200 Other: # Unmeasured Voids 3
[2025-04-08] MEDS: TAMSULOSIN HCL 0.4 MG CAPSULE PO (11:17)
[2025-04-08] MEDS: POTASSIUM CHLORIDE 20 MEQ ER TABLET PO (15:13)
[2025-04-08 15:58] LABS: Alanine Aminotransferase 25 U/L (6-50); Albumin Level 2.9 g/dL (3.5-5.1); Alkaline Phosphatase 64 U/L (38-126); Anion Gap 4 mmol/L (4-12); Aspartate Amino Transferase 43 U/L (17-59); Bilirubin,Total 0.8 mg/dL (0.2-1.3); Blood Urea Nitrogen 16 mg/dL (9-20); Calcium 8.1 mg/dL (8.4-10.2); Carbon Dioxide 24 mmol/L (22-30); Chloride 105 mmol/L (98-107); Estimated CRCL calculation 36 ml/min; Estimated Glomerular Filt Rate 49; Glucose 96 mg/dL (65-110); Potassium 3.6 mmol/L (3.4-5.0); Sodium 133 mmol/L (137-145); Total Protein 5.4 g/dL (6.3-8.2)
[2025-04-09] VITALS (8 sets, daily range): BP systolic 107–128; BP diastolic 60–67; PULSE 55–80; RESP 14–18; TEMP 36.6–36.8; O2SAT 97–100
[2025-04-09 05:26] LABS: Magnesium 1.4 mg/dL (1.6-2.3)
[2025-04-09 05:57] LABS: Thyroid Stimulating Hormone Reflex 2.000 uIU/mL (0.465-4.68)
--- NOTE | 2025-04-09 07:42 | P.PNIM_ITS ---
Progress Note: A&P Assessment and Plan (1) Syncope: Code(s): R55 - Syncope and collapse <Tanya Melendez, TEMPORARY STAFF ACCOUNTANT - Last Filed: 04/09/25 12:30> Status: Acute <Tanya Melendez, TEMPORARY STAFF ACCOUNTANT - Last Filed: 04/09/25 12:30> Assessment and Plan: 04/08: several syncope events over the last 3 months with chest pain/pressure intermittently. Recent unintentional [address] PE w/ abdomen pelvis did not reveal a causative finding of his symptoms. White count 8.7. Hemoglobin 11.2 with an MCV of 103. 2 point drop from 2 months ago. denies any source of bleeding. Potassium was 3.2 [address] being treated[address] brain unremarkable. Chest x-ray was clear. - DDx: orthostatic hypotension, vasovagal syncope, cardiac syncope, medication induced syncope, thyroid pathology vs other - recent weight loss but BP meds not adjusted- could be causing symptoms - Complete orthostatics - check TSH, Mg, CBC - trend CMP - continue KCl oral supplement. <Tanya Melendez, TEMPORARY STAFF ACCOUNTANT - Last Filed: 04/09/25 12:30> 04/08: several syncope events over the last 3 months with chest pain/pressure intermittently. Recent unintentional [address] PE w/ abdomen pelvis did not reveal a causative finding of his symptoms. White count 8.7. Hemoglobin 11.2 with an MCV of 103. 2 point drop from 2 months ago. denies any source of bleeding. Potassium was 3.2 and currently being treated. CT brain unremarkable. Chest x-ray was clear. - DDx: orthostatic hypotension, vasovagal syncope, cardiac syncope, medication induced syncope, thyroid pathology vs other - recent weight loss but BP meds not adjusted- could be causing symptoms - Complete orthostatics - check TSH, Mg, CBC - trend CMP - continue KCl oral supplement. 04/09 - Orthostatics from 04/08: Sitting - 112/62, HR 75; Standing - 102/55, HR 76. Supine not completed at the time of these 2 measurements. Consider retesting to have Supine v Standing comparison pending patients progression. - TSH is 2.000 (2.070 on 03/01/25) - Mg is 1.4 - will supplement with Mag-Ox - check CBC - K+ is 3.6 - continue to supplement - Low protein & Albumin - add dietary supplementaion <Arcenio Fortune Student - Last Filed: 04/09/25 11:16> (2) Chest pain: Code(s): R07.9 - Chest pain, unspecified <Tanya Melendez, TEMPORARY STAFF ACCOUNTANT - Last Filed: 04/09/25 12:30> Status: Acute <Tanya Melendez TEMPORARY STAFF ACCOUNTANT - Last Filed: 04/09/25 12:30> Assessment and Plan: 04/08: Intermittent ischemic type chest pain with and without activity for approx 6 months. accompanied by tingling in bilateral arms/hands. No cardiac history or family history. 1 brother with CAD. - Cardiology consulted: symptoms however are of significant concern and are associated with dynamic ST segment depression noted on his electrocardiogram and telemetry in the emergency room. Plan for diagnostic angiography on Thursday. - continue tele monitoring 04/09 - diagnostic angiography tomorrow- NPO at midnight - continue tele monitoring <Tanya Melendez, TEMPORARY STAFF ACCOUNTANT - Last Filed: 04/09/25 12:30> 04/08: Intermittent ischemic type chest pain with and without activity for approx 6 months. accompanied by tingling in bilateral arms/hands. No cardiac history or family history. 1 brother with CAD. - Cardiology consulted: symptoms however are of significant concern and are associated with dynamic ST segment depression noted on his electrocardiogram and telemetry in the emergency room. Plan for diagnostic angiography on Thursday. - continue tele monitoring 04/09 - diagnostic angiography tomorrow. - continue tele monitoring <Arcenio Fortune, Student - Last Filed: 04/09/25 11:16> (3) Essential (primary) hypertension: Code(s): I10 - Essential (primary) hypertension <Tanya Melendez APRN - Last Filed: 04/09/25 12:30> Status: Acute <Tanya Melendez TEMPORARY STAFF ACCOUNTANT - Last Filed: 04/09/25 12:30> Assessment and Plan: 04/08: BP low upon arrival of ED. Treated with IVF. BP continues to trend low. - hold losartan/HCTZ - continue to monitor <Tanyaolga Melendez TEMPORARY STAFF ACCOUNTANT - Last Filed: 04/09/25 12:30> 04/08: BP low upon arrival of ED. Treated with IVF. BP continues to trend low. - hold losartan/HCTZ - continue to monitor 04/09 - BP has been within normal limits since holding losartan/HCTZ. Symptomatically, patient has improved and feels much better the last 24 hours. - continue to hold & trend BP <Arcenio Fortune, Student - Last Filed: 04/09/25 11:16> (4) Benign prostatic hyperplasia with lower urinary tract symptoms: Code(s): N40.1 - Benign prostatic hyperplasia with lower urinary tract symptoms <Tanya Melendez TEMPORARY STAFF ACCOUNTANT - Last Filed: 04/09/25 12:30> Status: Acute <Tanya Melendez TEMPORARY STAFF ACCOUNTANT - Last Filed: 04/09/25 12:30> Assessment and Plan: 04/08 - continue tamsulosin - increase in frequency of urination at baseline. - Denies burning, pain, discoloration, or smell with urination <Tanya hurst TEMPORARY STAFF ACCOUNTANT - Last Filed: 04/09/25 12:30> (5) Mixed hyperlipidemia: Code(s): E78.2 - Mixed hyperlipidemia <Tanya Melendez TEMPORARY STAFF ACCOUNTANT - Last Filed: 04/09/25 12:30> Status: Acute <Tanya Melendez TEMPORARY STAFF ACCOUNTANT - Last Filed: 04/09/25 12:30> Assessment and Plan: - elevated triglycerides seen on most recent Lipid panel from 08/08/2024 - No treatment currently. <Tanya Melendez TEMPORARY STAFF ACCOUNTANT - Last Filed: 04/09/25 12:30> Assessment and Plan: heart healthy diet, NPO at midnight SCD/Pneumatics for DVT prophylactics until angiography. Switch to Lovenox after procedure. Full code <Tanya Melendez TEMPORARY STAFF ACCOUNTANT - Last Filed: 04/09/25 12:30> Subjective Date/time seen: 04/09/25 07:42 <Tanya Melendez TEMPORARY STAFF ACCOUNTANT - Last Filed: 04/09/25 12:30> Interval history: 04/09 - upright in bed upon exam. Pt states he is doing much better today. He denies any chest pain/pressure or dyspnea since admission. Denies lightheaded or dizziness upon changing positions or standing which he experienced daily prior to admission. Denies abdominal pain, N/V, headaches, vision changes, and urinary abnormalities. Has not had a bowel movement since yesterday. Denies need for miralax. <Tanya Melendez, TEMPORARY STAFF ACCOUNTANT - Last Filed: 04/09/25 12:30> 04/09 - upright in bed upon exam. Pt states he is doing much better today. He denies any chest pain/pressure or dyspnea since admission. Denies lightheaded or dizziness upon changing positions or standing which he experienced daily prior to admission. Denies abdominal pain, N/V, headaches, vision changes, and urinary abnormalities. Has not had a bowel movement since yesterday. <Arcenio Fortune, Student - Last Filed: 04/09/25 11:16> Review of Systems Review of Systems: All systems reviewed & are unremarkable except as noted in HPI and below <Tanya Melendez TEMPORARY STAFF ACCOUNTANT - Last Filed: 04/09/25 12:30> Exam Const: General: comfortable <Tanya Melendez, TEMPORARY STAFF ACCOUNTANT - Last Filed: 04/09/25 12:30> Objective Data Vital Signs Vital Signs: Vital Signs - 24 hr 04/08/25 08:00 04/08/25 08:48 04/08/25 08:48 Temperature Pulse Rate 91 72 Respiratory Rate 16 Blood Pressure 115/62 Pulse Oximetry 96 Oxygen Delivery Room Air 04/08/25 11:43 04/08/25 12:00 04/08/25 12:00 Temperature 97.7 F Pulse Rate 70 64 Respiratory Rate 16 Blood Pressure 109/58 L Pulse Oximetry 98 97 Oxygen Delivery Room Air 04/08/25 15:23 04/08/25 16:00 04/08/25 16:00 Temperature 97.3 F L Pulse Rate 69 76 69 Respiratory Rate 16 Blood Pressure 100/56 L 100/56 L Pulse Oximetry 99 99 Oxygen Delivery 04/08/25 18:07 04/08/25 18:07 04/08/25 20:00 Temperature 97.7 F Pulse Rate 75 76 59 L Respiratory Rate 18 Blood Pressure 112/62 102/55 L 105/60 Pulse Oximetry 99 99 98 Oxygen Delivery 04/08/25 20:02 04/08/25 20:15 04/09/25 00:00 Temperature Pulse Rate 54 L 60 Respiratory Rate Blood Pressure Pulse Oximetry Oxygen Delivery Room Air 04/09/25 00:00 04/09/25 03:36 04/09/25 04:00 Temperature 97.8 F 98.2 F Pulse Rate 65 68 58 L Respiratory Rate 18 18 Blood Pressure 123/65 121/64 Pulse Oximetry 99 97 Oxygen Delivery 04/09/25 05:29 Temperature 98.2 F Pulse Rate 68 Respiratory Rate 18 Blood Pressure 121/64 Pulse Oximetry 97 Oxygen Delivery <Tanya Melendez, TEMPORARY STAFF ACCOUNTANT - Last Filed: 04/09/25 12:30> Intake/Output Intake/Output: Intake & Output 04/06/25 04/07/25 04/08/25 04/09/25 23:59 23:59 23:59 23:59 Intake Total 1999 1030 200 Balance 1999 1030 200 <Tanya Melendez, TEMPORARY STAFF ACCOUNTANT - Last Filed: 04/09/25 12:30> Meds/Results Medications: Active Medications Generic Name Dose Route Start Last Admin Trade Name Freq PRN Reason Stop Dose Admin Bisacodyl 5 mg 04/08/25 14:18 Bisacodyl 5 Mg Tablet Ec PO QAM PRN Constipation Polyethylene Glycol 17 gm 04/08/25 13:39 Polyethylene Glycol 3350 17 Gm Powd.Pack PO QAM PRN Constipation Potassium Chloride 20 meq 04/08/25 15:05 04/08/25 15:13 Potassium Chloride 20 Meq Er Tablet PO 20 meq DAILY SILVIA Administration Tamsulosin HCl 0.4 mg 04/08/25 11:10 04/08/25 11:17 Tamsulosin Hcl 0.4 Mg Capsule PO 0.4 mg DAILY SILVIA Administration <Tanya Melendez TEMPORARY STAFF ACCOUNTANT - Last Filed: 04/09/25 12:30> Radiology Results: ITS Impressions Chest X-Ray 04/07/25 12:42 IMPRESSION: 1: NO ACUTE CARDIOPULMONARY DISEASE. Chest/Abdomen/Pelvis CTA 04/07/25 15:03 IMPRESSION: CHEST: 1. No pulmonary embolism. 2. No acute cardiopulmonary pathology. 3. Nodules in the right middle lobe. 6 months follow-up advised. ABDOMEN/PELVIS: 1. No evidence of appendicitis, diverticulitis or intestinal obstruction. 2. Sliding hiatus hernia. 3. Thickened wall of the urinary bladder which may indicate cystitis. Enlarged prostate. 4. Fat infiltration of the liver. Head CT 04/07/25 16:50 IMPRESSION: No acute intracranial process. <Tanya Melendez APRN - Last Filed: 04/09/25 12:30> Labs Labs: Laboratory Results - last 24 hr 04/08/25 04/09/25 15:38 04:39 Sodium 133 L Potassium 3.6 Chloride 105 Carbon Dioxide 24 Anion Gap 4 BUN 16 Creatinine 1.39 H Estim Creat Clear Calc 36 Estimated GFR 49 L Glucose 96 Calcium 8.1 L Magnesium 1.4 L Total Bilirubin 0.8 AST 43 ALT 25 Alkaline Phosphatase 64 Total Protein 5.4 L Albumin 2.9 L TSH (Reflex) 2.000 <Tanya Melendez APRN - Last Filed: 04/09/25 12:30> Quality VTE Prophylaxis VTE prophylaxis: mechanical ordered <Tanya Melendez APRN - Last Filed: 04/09/25 12:30>
[2025-04-09] MEDS: TAMSULOSIN HCL 0.4 MG CAPSULE PO (08:09)
[2025-04-09] MEDS: POTASSIUM CHLORIDE 20 MEQ ER TABLET PO (08:11)
--- NOTE | 2025-04-09 10:24 | P.PNCA_ITS ---
Progress Note: A&P Assessment and Plan (1) Chest pain: Code(s): R07.9 - Chest pain, unspecified Status: Acute Plan 79-year-old man with intermittent nonexertional chest pain quality of the pain however is very concerning for ischemia along with inferolateral ST segment depression which worsens during his symptoms. Will proceed with coronary angiography tomorrow and recommendations to be forthcoming after those result Prosper Armenta MD [facility] Subjective Date/time seen: Date of service: 04/09/25 10:24 Interval history: Follow-up visit in this 79-year-old man with: Intermittent chest pain for about 6 months. Because of the quality of the pain and the dynamic ST segment changes noted on ECG coronary angiography has been recommended and we will anticipate proceeding with this tomorrow. He feels well today and offers no complaints anxious/eager to get the angiogram performed Exam Const: General: comfortable and no acute distress HENMT: Mouth: Yes moist mucous membranes Eyes: Sclera: sclerae normal Neck: Neck: supple and no JVD Resp: Effort & Inspection: normal respiratory effort Auscultation: clear to auscultation bilaterally Cardio: Rate: regular rate Rhythm: regular rhythm GI: GI Palp: Yes Soft to palpation Auscultation: normal bowel sounds Skin: General skin exam: normal color Neuro: Other: Alert and oriented x3 Extrem: General: normal to inspection Objective Data Vital Signs Vital Signs: Vital Signs - 24 hr 04/08/25 11:43 04/08/25 12:00 04/08/25 12:00 Temperature 36.5 C Pulse Rate 70 64 Respiratory Rate 16 Blood Pressure 109/58 L Pulse Oximetry 98 97 Oxygen Delivery Room Air 04/08/25 15:23 04/08/25 16:00 04/08/25 16:00 Temperature 36.3 C L Pulse Rate 69 76 69 Respiratory Rate 16 Blood Pressure 100/56 L 100/56 L Pulse Oximetry 99 99 Oxygen Delivery 04/08/25 18:07 04/08/25 18:07 04/08/25 20:00 Temperature 36.5 C Pulse Rate 75 76 59 L Respiratory Rate 18 Blood Pressure 112/62 102/55 L 105/60 Pulse Oximetry 99 99 98 Oxygen Delivery 04/08/25 20:02 04/08/25 20:15 04/09/25 00:00 Temperature Pulse Rate 54 L 60 Respiratory Rate Blood Pressure Pulse Oximetry Oxygen Delivery Room Air 04/09/25 00:00 04/09/25 03:36 04/09/25 04:00 Temperature 36.6 C 36.8 C Pulse Rate 65 68 58 L Respiratory Rate 18 18 Blood Pressure 123/65 121/64 Pulse Oximetry 99 97 Oxygen Delivery 04/09/25 05:29 04/09/25 08:00 04/09/25 08:00 Temperature 36.8 C Pulse Rate 68 57 L Respiratory Rate 18 Blood Pressure 121/64 112/65 Pulse Oximetry 97 100 Oxygen Delivery Room Air 04/09/25 08:00 Temperature Pulse Rate 55 L Respiratory Rate Blood Pressure Pulse Oximetry Oxygen Delivery Intake/Output Intake/Output: Intake & Output 04/06/25 04/07/25 04/08/25 04/09/25 23:59 23:59 23:59 23:59 Intake Total 1999 1030 440 Balance 1999 1030 440 Meds/Results Medications: Active Medications Generic Name Dose Route Start Last Admin Trade Name Freq PRN Reason Stop Dose Admin Bisacodyl 5 mg 04/08/25 14:18 Bisacodyl 5 Mg Tablet Ec PO QAM PRN Constipation Magnesium Oxide 400 mg 04/09/25 09:55 Magnesium Oxide 400 Mg Tablet PO DAILY SILVIA Polyethylene Glycol 17 gm 04/08/25 13:39 Polyethylene Glycol 3350 17 Gm Powd.Pack PO QAM PRN Constipation Potassium Chloride 20 meq 04/08/25 15:05 04/09/25 08:11 Potassium Chloride 20 Meq Er Tablet PO 20 meq DAILY SILVIA Administration Tamsulosin HCl 0.4 mg 04/08/25 11:10 04/09/25 08:09 Tamsulosin Hcl 0.4 Mg Capsule PO 0.4 mg DAILY SILVIA Administration Radiology Results: ITS Impressions Chest X-Ray 04/07/25 12:42 IMPRESSION: 1: NO ACUTE CARDIOPULMONARY DISEASE. Chest/Abdomen/Pelvis CTA 04/07/25 15:03 IMPRESSION: CHEST: 1. No pulmonary embolism. 2. No acute cardiopulmonary pathology. 3. Nodules in the right middle lobe. 6 months follow-up advised. ABDOMEN/PELVIS: 1. No evidence of appendicitis, diverticulitis or intestinal obstruction. 2. Sliding hiatus hernia. 3. Thickened wall of the urinary bladder which may indicate cystitis. Enlarged prostate. 4. Fat infiltration of the liver. Head CT 04/07/25 16:50 IMPRESSION: No acute intracranial process. Labs Labs: Laboratory Results - last 24 hr 04/08/25 04/09/25 15:38 04:39 Sodium 133 L Potassium 3.6 Chloride 105 Carbon Dioxide 24 Anion Gap 4 BUN 16 Creatinine 1.39 H Estim Creat Clear Calc 36 Estimated GFR 49 L Glucose 96 Calcium 8.1 L Magnesium 1.4 L Total Bilirubin 0.8 AST 43 ALT 25 Alkaline Phosphatase 64 Total Protein 5.4 L Albumin 2.9 L TSH (Reflex) 2.000
[2025-04-09] MEDS: MAGNESIUM OXIDE 400 MG TABLET PO (11:13)
[2025-04-09 16:24] LABS: Alanine Aminotransferase 24 U/L (6-50); Albumin Level 2.9 g/dL (3.5-5.1); Alkaline Phosphatase 66 U/L (38-126); Anion Gap 4 mmol/L (4-12); Aspartate Amino Transferase 40 U/L (17-59); Bilirubin,Total 0.8 mg/dL (0.2-1.3); Blood Urea Nitrogen 13 mg/dL (9-20); Calcium 8.4 mg/dL (8.4-10.2); Carbon Dioxide 25 mmol/L (22-30); Chloride 104 mmol/L (98-107); Estimated CRCL calculation 38 ml/min; Estimated Glomerular Filt Rate 53; Glucose 96 mg/dL (65-110); Potassium 4.0 mmol/L (3.4-5.0); Sodium 133 mmol/L (137-145); Total Protein 5.3 g/dL (6.3-8.2)
[2025-04-10] VITALS (22 sets, daily range): BP systolic 107–122; BP diastolic 41–71; PULSE 50–93; RESP 14–18; TEMP 36.6–37.2; O2SAT 96–100; BMI 23.1
--- NOTE | 2025-04-10 | ECHO_ITS ---
Patient Info Name: Prosper Mir Age: 79 years : 1945 Gender: Male Ht: 66 in Wt: 143 lbs BSA: 1.74 m2 HR: 67 bpm BP: 111 / 65 mmHg Technical Quality: Good Exam Date: 04/10/2025 10:11 AM Patient Status: I Admit Date: 04/09/2025 Exam Type: CA echo doppler color flow Complete two-dimensional, color flow and Doppler transthoracic echocardiogram is performed. Staff Referring Physician: Ollie Medeiros Supervisor Quality Control: Ember Moon Attending Provider: Gucci Lopez MD Summary 1. Complete two-dimensional, color flow and Doppler transthoracic echocardiogram is performed. 2. There is normal biventricular size and systolic function. 3. There is mild aortic regurgitation. Left Ventricle The left ventricle is normal in size and systolic function. The left ventricular ejection fraction is visually estimated to be 60-65%. Right Ventricle The right ventricle is normal in size and systolic function. Left Atria The left atrium is normal size. Right Atria The right atrium is normal size. Atrial Septum The atrial septum is not well visualized. Aortic Valve The aortic valve is trileaflet and opens well. There is mild aortic regurgitation. Pulmonic Valve The pulmonic valve is not well visualized. There is mild pulmonic valve regurgitation. Mitral Valve The mitral valve leaflets are sclerotic. There is no mitral stenosis. There is no mitral regurgitation. Tricuspid Valve The tricuspid valve is normal. There is mild tricuspid regurgitation. Pericardium/Pleural Pericardium is normal in appearance with no evidence for significant pericardial effusion. Inferior Vena Cava Normal inferior vena cava with >50% collapse upon inspiration consistent with normal right atrial pressure, 3 mmHg. Aorta The aortic root at the level of the sinus of Valsalva measures 3.0 cm in diameter. Left Ventricular Outflow Tract Name Value Normal LVOT 2D LVOT Diameter 2.0 cm LVOT Doppler LVOT Peak Velocity 104 cm/s LVOT Peak Gradient 4 mmHg LVOT Mean Gradient 2 mmHg LVOT VTI 21 cm LVOT VTI/AV VTI Ratio 0.8 LVOT Stroke Volume 64 ml LVOT CO 3.7 l/min LVOT CI 2.1 l/min/m2 Pulmonic Valve Name Value Normal RVOT Doppler RVOT Peak Velocity 62 cm/s RVOT Peak Gradient 2 mmHg PV Doppler PV Peak Velocity 76 cm/s PV Peak Gradient 2 mmHg Mitral Valve Name Value Normal MV Diastolic Function MV E Peak Velocity 77 cm/s MV A Peak Velocity 49 cm/s MV E/A 1.6 MV Decel Time (PW) 225 ms Tricuspid Valve Name Value Normal TV Regurgitation Doppler TR Peak Velocity 275 cm/s TR Peak Gradient 30 mmHg Estimated PAP/RSVP RA Pressure 3 mmHg <=5 PA Systolic Pressure 33 mmHg <36 RV Systolic Pressure 33 mmHg <36 Aorta Name Value Normal Ascending Aorta Ao Root Diameter (MM) 3.2 cm Ao Root Diam Index (MM) 1.8 cm/m2 Aortic Valve Name Value Normal AV Doppler AV Peak Velocity 123 cm/s AV Peak Gradient 6 mmHg AV Mean Gradient 3 mmHg AV VTI 25 cm AV Area (Cont Eq VTI) 2.5 cm2 >=3.0 AV Area (Cont Eq Nikolay) 2.6 cm2 AV DI (Nikolay) 0.84 AV Regurgitation 2D LVOT Area 3.1 cm2 Ventricles Name Value Normal LV Dimensions 2D/MM IVS Diastolic Thickness (2D) 0.7 cm 0.6-1.0 IVS Diastole Thickness (MM) 0.8 cm 0.6-1.0 LVID Diastole (2D) 4.5 cm 4.2-5.8 LVID Diastole (MM) 5.6 cm 4.2-5.8 LVIW Diastolic Thickness (2D) 0.6 cm 0.6-1.0 LVIW Diastolic Thickness (MM) 1.0 cm 0.6-1.0 LVID Systole (2D) 2.7 cm 2.5-4.0 LVID Systole (MM) 3.1 cm 2.5-4.0 LVOT Diameter 2.0 cm LV Mass (2D Cubed) 82.50 g 88.00-224.00 LV Mass Index (2D Cubed) 47 g/m2 49-115 Relative Wall Thickness (2D) 0.27 <=0.42 LV Mass (MM Cubed) 186.99 g 88.00-224.00 LV Mass Index (MM Cubed) 107 g/m2 49-115 Relative Wall Thickness (MM) 0.35 LV Fractional Shortening/Ejection Fraction 2D/MM LV Fractional Shortening (2D) 40 % 25-43 LV Fractional Shortening (MM) 45 % 25-43 LV EF (MM Teichholz) 75 % LV EF (2D Teichholz) 71 % LV Diastolic Volume (4C MOD) 77 ml LV EF (4C MOD) 74 % LV Diastolic Volume (2C MOD) 60 ml LV EF (2C MOD) 68 % LV Diastolic Volume (BP MOD) 68 ml 62-150 LV Diastolic Volume Index (BP MOD) 39 ml/m2 34-74 LV Systolic Volume (BP MOD) 20 ml 21-61 LV Systolic Volume Index (BP MOD) 11 ml/m2 11-31 LV EF (BP MOD) 71 % 52-72 LV Diastolic Length (4C) 7.4 cm LV Systolic Length (4C) 6.1 cm LV Stroke Volume (4C MOD) 57 ml Atria Name Value Normal LA Dimensions LA Dimension (MM) 4.1 cm 3.0-4.0 LA Volume (4C A-L) 61 ml LA Volume (BP A-L) 61 ml RA Dimensions RA Systolic Major [place] Length (4C) 5.0 cm 2.1-2.7 RA Area (4C) 17.4 cm2 <=18.0 Report Signatures
[2025-04-10 05:21] LABS: Hematocrit 31.0 % (42.0-52.0); Hemoglobin 10.5 g/dL (14.0-18.0); Mean Corpuscular HGB Conc 33.9 g/dl (32-36); Mean Corpuscular Hemoglobin 36.2 pg (26-34); Mean Corpuscular Volume 106.9 fl (80-100); Platelet Count Result 195 k/mm3 (150-375); Red Blood Count 2.90 M/mm3 (4.6-6.20); White Blood Count 5.0 K/mm3 (4.5-10.0)
--- NOTE | 2025-04-10 09:54 | WPDHPUPDATE1 ---
History and Physical Update Update Date/Time: 04/10/25 08:54 History and Physical has been reviewed, including an updated exam of the patient. There are NO changes in the patient's condition. Risks, benefits, and alternatives have been discussed and questions answered. Patient agrees to proceed with procedure.
--- NOTE | 2025-04-10 09:55 | WPDMODSED ---
Moderate Sedation Note-Pt Data Patient Data Allergies Allergy/AdvReac Type Severity Reaction Status Date / Time erythromycin base AdvReac Unknown Anxiety Verified 04/05/25 09:48 lisinopril AdvReac Unknown Cough Verified 04/05/25 09:48 Home Medications ?Medication ?Instructions ?Recorded ?Confirmed ?Type losartan 100 1 tablet PO DAILY HTN #90 tabs 06/29/24 04/07/25 Rx mg-hydrochlorothiazide 12.5 mg tablet tamsulosin 0.4 mg capsule 0.4 mg PO DAILY #180 caps 02/09/25 04/07/25 Rx Current Medications: Active Medications Bisacodyl (Bisacodyl 5 Mg Tablet Ec) 5 mg PO QAM PRN PRN Reason: Constipation Magnesium Oxide (Magnesium Oxide 400 Mg Tablet) 400 mg PO DAILY [facility] Last Admin: 04/09/25 11:13 Dose: 400 mg Perflutren Lipid Microsphere (Perflutren Lipid Microspheres 1.5 Ml Vial Diluted To 10 Ml Total Volume) 0 ml IV PUSH ONCE PRN; Protocol PRN Reason: adequate visualization Stop: 04/13/25 08:34 Polyethylene Glycol (Polyethylene Glycol 3350 17 Gm Powd.Pack) 17 gm PO QAM PRN PRN Reason: Constipation Potassium Chloride (Potassium Chloride 20 Meq Er Tablet) 20 meq PO DAILY [facility] Last Admin: 04/09/25 08:11 Dose: 20 meq Tamsulosin HCl (Tamsulosin Hcl 0.4 Mg Capsule) 0.4 mg PO DAILY [facility] Last Admin: 04/09/25 08:09 Dose: 0.4 mg Sedation/Anesthesia: No previous sedation/anesthesia problems (including family history). [facility] Family History Family History Mother Lung cancer Social History Social History Smoking status: Current every day smoker Tobacco type: cigars Second hand tobacco smoke exposure: No Alcohol intake: current Drinks per week: 6 Substance use: never Do You Feel Safe in your Home?: Yes Lack of Transportation: No Lack of Food: Never True Current Housing: I Have Housing Concerned About Future Housing: No Difficulty Paying Gas/Electric Bills: No Difficulty Paying for Meds: No Currently Unemployed: No Education: High School Diploma/GED Difficulty w/ Childcare or Family Care: No Spiritual care concerns: No Mod Sed Physical Exam Physical Exam Pre Procedural Exam: Normal: Lungs, Heart Size, Heart Rate and Heart Rhythm Hours since solid foods: 12 Hours since liquid intake: 12 Mallampati Classification: class II Internal Medicine - PN: Obj Da Vital Signs Vital Signs: Vital Signs - 24 hr 04/09/25 12:00 04/09/25 12:00 04/09/25 16:00 Temperature Pulse Rate 64 80 70 Respiratory Rate 14 Blood Pressure 107/67 Pulse Oximetry 99 Oxygen Delivery 04/09/25 16:00 04/09/25 20:00 04/09/25 20:00 Temperature 36.7 C Pulse Rate 71 65 Respiratory Rate 14 18 Blood Pressure 128/60 110/60 Pulse Oximetry 100 98 Oxygen Delivery Room Air 04/09/25 20:00 04/10/25 00:00 04/10/25 00:00 Temperature 36.8 C Pulse Rate 78 61 68 Respiratory Rate 18 Blood Pressure 112/69 Pulse Oximetry 98 Oxygen Delivery 04/10/25 04:00 04/10/25 04:00 04/10/25 07:45 Temperature 36.6 C 37.2 C Pulse Rate 60 58 L 64 Respiratory Rate 18 16 Blood Pressure 122/69 111/65 Pulse Oximetry 97 98 Oxygen Delivery Intake/Output Intake/Output: Intake & Output 04/07/25 04/08/25 04/09/25 04/10/25 23:59 23:59 23:59 23:59 Intake Total 1999 1030 1270 340 Balance 1999 1030 1270 340 Meds/Results Medications: Active Medications Generic Name Dose Route Start Last Admin Trade Name Freq PRN Reason Stop Dose Admin Bisacodyl 5 mg 04/08/25 14:18 Bisacodyl 5 Mg Tablet Ec PO QAM PRN Constipation Magnesium Oxide 400 mg 04/09/25 09:55 04/09/25 11:13 Magnesium Oxide 400 Mg Tablet PO 400 mg DAILY SILVIA Administration Perflutren Lipid Microsphere 0 ml 04/10/25 08:33 Perflutren Lipid Microspheres 1.5 Ml Vial Diluted To 10 Ml Total Volume IV PUSH 04/13/25 08:34 ONCE PRN adequate visualization Protocol Polyethylene Glycol 17 gm 04/08/25 13:39 Polyethylene Glycol 3350 17 Gm Powd.Pack PO QAM PRN Constipation Potassium Chloride 20 meq 04/08/25 15:05 04/09/25 08:11 Potassium Chloride 20 Meq Er Tablet PO 20 meq DAILY SILVIA Administration Tamsulosin HCl 0.4 mg 04/08/25 11:10 04/09/25 08:09 Tamsulosin Hcl 0.4 Mg Capsule PO 0.4 mg DAILY SILVIA Administration Radiology Results: ITS Impressions Chest X-Ray 04/07/25 12:42 IMPRESSION: 1: NO ACUTE CARDIOPULMONARY DISEASE. Chest/Abdomen/Pelvis CTA 04/07/25 15:03 IMPRESSION: CHEST: 1. No pulmonary embolism. 2. No acute cardiopulmonary pathology. 3. Nodules in the right middle lobe. 6 months follow-up advised. ABDOMEN/PELVIS: 1. No evidence of appendicitis, diverticulitis or intestinal obstruction. 2. Sliding hiatus hernia. 3. Thickened wall of the urinary bladder which may indicate cystitis. Enlarged prostate. 4. Fat infiltration of the liver. Head CT 04/07/25 16:50 IMPRESSION: No acute intracranial process. Labs 04/10/25 04:40 04/09/25 15:37 Labs: Laboratory Results - last 24 hr 04/09/25 04/10/25 15:37 04:40 WBC 5.0 RBC 2.90 L Hgb 10.5 L Hct 31.0 L MCV 106.9 H MCH 36.2 H MCHC 33.9 RDW 12.6 Plt Count 195 MPV 10.8 H Sodium 133 L Potassium 4.0 Chloride 104 Carbon Dioxide 25 Anion Gap 4 BUN 13 Creatinine 1.30 Estim Creat Clear Calc 38 Estimated GFR 53 L Glucose 96 Calcium 8.4 Total Bilirubin 0.8 AST 40 ALT 24 Alkaline Phosphatase 66 Total Protein 5.3 L Albumin 2.9 L ASA Classification/Sedation ASA Classification/Sedation ASA Class: III Emergent: No Risks: Risks, benefits and alternatives explained and patient/family accepted plan for sedation. Patient re-evaluated immediately prior to sedation.
[2025-04-10] MEDS: POTASSIUM CHLORIDE 20 MEQ ER TABLET PO (10:38)
[2025-04-10] MEDS: TAMSULOSIN HCL 0.4 MG CAPSULE PO (10:38)
[2025-04-10] MEDS: MAGNESIUM OXIDE 400 MG TABLET PO (10:38)
--- NOTE | 2025-04-10 12:29 | P.PCNCC_ITS ---
Cardiac Cath Procedure Note Date of procedure:: 04/10/25 Performing physician:: CATHETERIZATION LABORATORY REPORT Procedure Date: 04/10/2025 Referring Physician: Dr. Armenta Anesthesia: Versed and Fentanyl were ordered and given in my presence at 1212, procedure ended at 1224. Supervision of nurse, Henny Laura RN monitored moderate sedation with 2mg Versed and 50mcg Fentanyl was provided for 12 minutes. Pre-op Diagnosis: Chest pain Post-op Diagnosis: Chest pain Procedure(s): Left heart catheterization with coronary angiography Access Site: Right radial artery Brief History and Clinical Indications: 71-year-old man with hypertension was admitted for syncope who also complain of anginal symptoms for which a cardiac catheterization was recommended in light of ischemic EKG changes and patient is now here to define his coronary anatomy with possible PCI. All risks, benefits and alternatives to left heart catheterization with or without percutaneous coronary intervention was discussed at length with the patient. Risk of complications including but not limited to bleeding, infection, arrhythmia, stroke, worsening kidney function, blood loss, groin hematoma, limb loss, emergency coronary artery bypass grafting, and even were discussed with the patient and all questions were answered. The patient understood and wished to proceed. Time out called, patient name, date of , medical record number, allergies, procedure performed, identify Press Pipe Inspector, patient and staff member concurred with accurate data, procedure carried on. Findings: LEFT HEART CATHETERIZATION FINDINGS: 1. Left main: The left main coronary artery has distal 60-70% stenosis. There was corresponding pressure dampening suggestive of significant left main coronary artery stenosis. 2. Left anterior descending: The LAD and the diagonal branches have diffuse 10% stenosis. 3. Left circumflex: The left circumflex artery provides 2 OM branches. The proximal left circumflex has 10-20% stenosis. OM1 is a small caliber vessel with diffuse 10% stenosis. OM2 has 30-40% proximal stenosis followed by diffuse 10-20% stenosis throughout its body. 4. Right coronary artery: The RCA is a large dominant vessel with diffuse 30-40% stenosis in its proximal to mid body followed by diffuse 10% stenosis throughout the remainder of the vessel and its branches. 5. Left ventricle: A. End-diastolic pressure 15 mmHg. B. LV gram deferred. C. No significant gradient across aortic valve on catheter pullback. 6. Opening AO pressure 100/78 and closing AO pressure 108/64 Description of Procedure: Informed consent signed and placed in the chart. Patient transferred to packing house laborer room. Prepped and draped in usual sterile fashion. 2% lidocaine injected subcutaneously in right wrist area. 22-gauge venipuncture catheter used to access the right radial artery with the Seldinger technique. 6-FR slender sheath placed in right radial artery. Nitroglycerin 200mcg, Verapamil 2.5mg, and Heparin 5000U was given intraarterial through the sheath. J wire advanced under fluoroscopy. 5F Ultra diagnostic catheter engaged Left Main Coronary Artery. 5F Ultra diagnostic catheter engaged Right Coronary Artery Multiple orthogonal angiogram obtained and reviewed 5F Pigtail catheter crossed aortic valve to obtain LVEDP, LV angiogram deferred. Hemostasis was achieved by application of TR band. Assessment: Significant distal LMCA stenosis. Post Operative Condition: Stable No significant blood loss Disposition: Floor/Home Plan: The patient will be monitored in the recovery area. Continue aggressive medical therapy and risk factor modification. ASA 81mg oral daily and Rosuvastatin 20mg qhs added. Heart rate can not tolerate beta blockers at this time. Outpatient CTS consult for consideration of CABG Ok for discharge from cardiac perspective [facility]
[2025-04-10] MEDS: SODIUM CHLORIDE 0.9% IV 1,000 ML 125 ML IV CONT (13:02)
--- NOTE | 2025-04-10 14:38 | PM.DS ---
DS: Admitting Diagnosis Discharge Date 04/10/2025 14:38 <Arcenio Fortune, Student - Last Filed: 04/10/25 15:03> Admitting Diagnosis Syncope and Chest pain <Arcenio Fortune Student - Last Filed: 04/10/25 15:03> DS: Discharge Diagnosis Discharge Diagnosis (1) Syncope: Code(s): R55 - Syncope and collapse <Tanya Melendez APRN - Last Filed: 04/10/25 15:32> Status: Acute <Tanya Melendez [employer]SEMBLER - Last Filed: 04/10/25 15:32> Assessment and Plan: 04/08: several syncope events over the last 3 months with chest pain/pressure intermittently. Recent unintentional [address] PE w/ abdomen pelvis did not reveal a causative finding of his symptoms. White count 8.7. Hemoglobin 11.2 with an MCV of 103. 2 point drop from 2 months ago. denies any source of bleeding. Potassium was 3.2 and currently being treated. CT brain unremarkable. Chest x-ray was clear. - DDx: orthostatic hypotension, vasovagal syncope, cardiac syncope, medication induced syncope, thyroid pathology vs other - recent weight loss but BP meds not adjusted- could be causing symptoms - Complete orthostatics - check TSH, Mg, CBC - trend CMP - continue KCl oral supplement. 04/09 - Orthostatics from 04/08: Sitting - 112/62, HR 75; Standing - 102/55, HR 76. Supine not completed at the time of these 2 measurements. Consider retesting to have Supine v Standing comparison pending patients progression. - TSH is 2.000 (2.070 on 03/01/25) - Mg is 1.4 - will supplement with Mag-Ox - check CBC - K+ is 3.6 - continue to supplement - Low protein & Albumin - add dietary supplementaion <Tanya Melendez APRN - Last Filed: 04/10/25 15:32> (2) Chest pain: Code(s): R07.9 - Chest pain, unspecified <Tanya Melendez [employer]SEMBLER - Last Filed: 04/10/25 15:32> Status: Acute <Tanya Melendez [employer]SEMBLER - Last Filed: 04/10/25 15:32> Assessment and Plan: 04/08: Intermittent ischemic type chest pain with and without activity for approx 6 months. accompanied by tingling in bilateral arms/hands. No cardiac history or family history. 1 brother with CAD. - Cardiology consulted: symptoms however are of significant concern and are associated with dynamic ST segment depression noted on his electrocardiogram and telemetry in the emergency room. Plan for diagnostic angiography on Thursday. - continue tele monitoring 04/09 - diagnostic angiography tomorrow- NPO at midnight - continue tele monitoring <Tanya Melendez [employer]SEM[employer]ER - Last Filed: 04/10/25 15:32> (3) Essential (primary) hypertension: Code(s): I10 - Essential (primary) hypertension <Tanya Melendez [employer]SEMBLER - Last Filed: 04/10/25 15:32> Status: Acute <Tanya Melendez [employer]SEMBLER - Last Filed: 04/10/25 15:32> Assessment and Plan: 04/08: BP low upon arrival of ED. Treated with IVF. BP continues to trend low. - hold losartan/HCTZ - continue to monitor 04/09 - BP has been within normal limits since holding losartan/HCTZ. Symptomatically, patient has improved and feels much better the last 24 hours. - continue to hold & trend BP <Tanya Melendez [employer]SEMBLER - Last Filed: 04/10/25 15:32> (4) Benign prostatic hyperplasia with lower urinary tract symptoms: Code(s): N40.1 - Benign prostatic hyperplasia with lower urinary tract symptoms <Tanya MoreiraAnna Al [employer]SEMBLER - Last Filed: 04/10/25 15:32> Status: Acute <Tanya Mensah Al [employer]SEMBLER - Last Filed: 04/10/25 15:32> Assessment and Plan: 04/08 - continue tamsulosin - increase in frequency of urination at baseline. - Denies burning, pain, discoloration, or smell with urination <Tanya Melendez APRN - Last Filed: 04/10/25 15:32> (5) Mixed hyperlipidemia: Code(s): E78.2 - Mixed hyperlipidemia <Tanya Melendez APRN - Last Filed: 04/10/25 15:32> Status: Acute <Tanya Melendez APRN - Last Filed: 04/10/25 15:32> Assessment and Plan: - elevated triglycerides seen on most recent Lipid panel from 08/08/2024 - No treatment currently. <Tanya Melendez APRN - Last Filed: 04/10/25 15:32> Assessment and Plan: heart healthy diet, NPO at midnight SCD/Pneumatics for DVT prophylactics until angiography. Switch to Lovenox after procedure. Full code <Tanya Melendez APRN - Last Filed: 04/10/25 15:32> DS: Summary Hospital Course Reason for hospitalization: <Arcenio Fortune, Student - Last Filed: 04/10/25 15:03> Hospital Course: 79 year old male with past medical history of HTN, BPH, and hyperlipidemia presents to the hospital complaining of multiple syncope events and chest pressure. Recent history of 20 lbs of unintentional weight loss & decrease appetite following COVID in December. Notes dizziness and lightheaded daily if standing up to quickly. Pt HTN medications have not been adjusted in the last 10 years. Endorses chest pain/pressure that occurs intermittently at rest and with activity. Presented to ED via EMG after syncope event. erial EKGs were conducted which showed ST depressions in inferior and lateral leads following chest pain. Troponin undetectable. Chest pain resolved following nitro, oxygen, and aspirin. Given 2L of IVF d/t low BP (99/57). CT PE w/ abdomen pelvis did not reveal a causative finding of his symptoms. White count 8.7. Hemoglobin 11.2 with an MCV of 103. Denied source of bleed or blood in stool. Potassium was 3.2 and was treated orally with supplementation. CT head unremarkable. Chest x-ray was clear. While admitted his blood pressure medication (losarta/HCTZ) was held and his BP remained stable within normal limits. Mg was 1.4. He was given potassium and magnesium oral supplements. On 04/10/25, an echo was completed showing normal biventricular size & systolic function (EF 60-65%) and mild aortic regurgitation. Additionally, a cardiac Cath was completed with cardiology resulting in significant distal Left main coranary artery stenosis. Cardiology recommend agressive medical therapy including ASA 81mg & Rosuvastatin 20mg qhs. Beta blockers were not added due to patients low heart rate. Outpatient cardiothoracic surgery consult was made for consideration of CABG procedure. # Syncope & HTN - Upon arrival to the ED, your BP was low (99/57) - blood pressure medication was held (Losartan/HCTZ), BP remained stable - pt was instructed to keep a daily log of blood pressure.. Log blood pressure for 1-2 weeks and report back to primary care physician (PCP). - close f/u with pcp for further instructions. # Chest Pressure - During your admission, cardiology was consulted and recommended a Cardic Cath. - Cardiac Cath identified significant distal Left main coronary artery stenosis. - Cardiology recommended starting 81 mg aspirin & Rosuvastatin 20mg -rx sent - Follow up with your Patient Intake Representative and/or a Cardiothoracic Surgeon to discuss possible CABG procedure. <Tanya Melendez, [employer]SEMBLER - Last Filed: 04/10/25 15:32> 79 year old male with past medical history of HTN, BPH, and hyperlipidemia presents to the hospital complaining of multiple syncope events and chest pressure. Recent history of 20 lbs of unintentional weight loss & decrease appetite following COVID in December. Notes dizziness and lightheaded daily if standing up to quickly. Pt HTN medications have not been adjusted in the last 10 years. Endorses chest pain/pressure that occurs intermittently at rest and with activity. Presented to ED via EMG after syncope event. erial EKGs were conducted which showed ST depressions in inferior and lateral leads following chest pain. Troponin undetectable. Chest pain resolved following nitro, oxygen, and aspirin. Given 2L of IVF d/t low BP (99/57). CT PE w/ abdomen pelvis did not reveal a causative finding of his symptoms. White count 8.7. Hemoglobin 11.2 with an MCV of 103. Denied source of bleed or blood in stool. Potassium was 3.2 and was treated orally with supplementation. CT head unremarkable. Chest x-ray was clear. While admitted his blood pressure medication (losarta/HCTZ) was held and his BP remained stable within normal limits. Mg was 1.4. He was given potassium and magnesium oral supplements. On 04/10/25, an echo was completed showing normal biventricular size & systolic function (EF 60-65%) and mild aortic regurgitation. Additionally, a cardiac Cath was completed with cardiology resulting in significant distal Left main coranary artery stenosis. Cardiology recommend agressive medical therapy including ASA 81mg & Rosuvastatin 20mg qhs. Beta blockers were not added due to patients low heart rate. Outpatient cardiothoracic surgery consult was made for consideration of CABG procedure. # Syncope & HTN - Upon arrival to the ED, your BP was low (99/57) - During your admission your blood pressure medication was held (Losartan/HCTZ) and your blood pressure was stable within normal limits. - At home, keep a daily log of blood pressure. Take blood pressure first thing in the morning after you wake up. Log blood pressure for 1-2 weeks and report back to primary care physician (PCP). - If your blood pressure rises prior to follow up with PCP, call your PCP's office. # Chest Pressure - During your admission, cardiology was consulted and recommended a Cardic Cath. - Cardiac Cath identified significant distal Left main coranary artery stenosis. - Cardiology recommended starting 81 mg aspirin & Rosuvastatin 20mg - Follow up with your Patient Intake Representative and/or a Cardiothoracic Surgeon to discuss possible CABG procedure. <Cruz Richard - Last Filed: 04/10/25 15:03> Status at Discharge Functional status at discharge: independent ambulation <Tanya Melendez APRN - Last Filed: 04/10/25 15:32> Overall status at discharge: patient is progressing back to baseline <Tanya Melendez APRN - Last Filed: 04/10/25 15:32> Time Spent with Patient Time attestation: Total time spent providing and/or coordinating discharge services: <Tanya Melendez APRN - Last Filed: 04/10/25 15:32> Time spent: Greater than 30 minutes <Cruz Richard - Last Filed: 04/10/25 15:03> Exam Narrative: Const: General - comfortable and no acute distress HEENT: moist mucous membranes, PERRLA, EOMI, Supple without JVD and lymphadenopathy, mild thyroid enlargement Resp: normal effort, rate. Clear to auscultation. No wheezing, rhonchi, or rales. Cardio: Regular rate & Rhythm. Normal S1 & S2. No gallops, murmurs or rubs. Capillary refill 2-3 seconds Abdomen: Non-distended, soft, normal bowel sounds, no pulsatile masses Neuro: A&Ox4, CN 2-12 grossly intact Skin: warm, dry, intact, no rash, erythema, or lesions Extremity: No cyanosis, clubbing, or edema present. Pulses palpable and normal bilaterally. Active ROM to all four extremities. Psych: pleasant, cooperative, normal speech & affect <Cruz Richard - Last Filed: 04/10/25 15:03> Const: General: comfortable <Tanya Melendez APRN - Last Filed: 04/10/25 15:32> DS: Data Data Completed and Pending Completed studies during hospitalization: cardiac cath <Tanya Melendez APRN - Last Filed: 04/10/25 15:32> Labs on day of discharge: Labs from last 24 hours 04/10/25 04/09/25 04:40 15:37 WBC 5.0 RBC 2.90 L Hgb 10.5 L Hct 31.0 L MCV 106.9 H MCH 36.2 H MCHC 33.9 RDW 12.6 Plt Count 195 MPV 10.8 H Sodium 133 L Potassium 4.0 Chloride 104 Carbon Dioxide 25 Anion Gap 4 BUN 13 Creatinine 1.30 Estim Creat Clear Calc 38 Estimated GFR 53 L Glucose 96 Calcium 8.4 Total Bilirubin 0.8 AST 40 ALT 24 Alkaline Phosphatase 66 Total Protein 5.3 L Albumin 2.9 L <Tanya Melendez APRN - Last Filed: 04/10/25 15:32> Discharge Plan Discharge Attending physician on discharge: Astrid Jenkins <Tanya Melendez APRN - Last Filed: 04/10/25 15:32> Astrid Jenkins <Cruz Richard - Last Filed: 04/10/25 15:03> Consulting providers: Prosper Armenta <Tanya Melendez APRN - Last Filed: 04/10/25 15:32> Discharging Clinician: Tanya Melendez <Tanya Melendez APRN - Last Filed: 04/10/25 15:32> Tanya Melendez <Cruz Richard - Last Filed: 04/10/25 15:03> Patient Disposition: Home <Tanya Melendez APRN - Last Filed: 04/10/25 15:32> Activity: may shower <Tanya Melendez APRN - Last Filed: 04/10/25 15:32> may shower <Arcenio Fortune Student - Last Filed: 04/10/25 15:03> Diet: heart healthy <Tanya Melendez APRN - Last Filed: 04/10/25 15:32> heart healthy <Cruz Richard - Last Filed: 04/10/25 15:03> Discharge Instructions: [facility] [address] [facility] [address] [place] [address] DISCHARGE INSTRUCTIONS - POST RADIAL CATH Activity 1. No driving for 24 hours. 2. No lifting more than 5 lb with affected arm for 1 week. 3. May shower ( tomorrow) but no excessive soaking of affected hand/wrist (such as washing dishes), swimming pool or hot tub for 5 days. 4. No excessive exercise until you are seen by the heart surgeon, do not over exert yourself. Wound Care 1. May remove arm board in the morning. 2. May remove gauze dressing in the morning and put Band-Aid over affected radial site. Keep site covered for 3 days. 3. Observe for redness, drainage, swelling or bleeding. Medications DO NOT STOP YOUR MEDICATIONS ONLY YOUR TOOL AND DIE REPAIR CAN STOP THE FOLLOWING MEDICATIONS - PLEASE CALL THE OFFICE WITH QUESTIONS. *Aspirin *Ticagrelor (Brilinta) *Atorvastatin *Lisinopril or ARB *Metoprolol tartrate or succinate *Clopidogrel (Plavix) *Prasugrel (Effient) Important Reminders 1. Keep your stent card in your wallet at all times 2. Follow a heart healthy diet paying extra attention to cholesterol and fats. 3. Stay hydrated. 4. If you have chest pain unrelieved by rest or nitroglycerin (if prescribed) call 911 immediately. 5. If you miss one dose of Brilinta (if prescribed) take a tablet at the next time due. If you miss 2 doses take a tablet when you remember and resume at the next time due. *For any other questions please call the office at [phone]. Office hours are 8AM 4:30PM Thursday through Thursday. Call and schedule a Follow up appointment with both: - Patient Intake Representative - Primary Care/Family Physician Hypertension & Blood Pressure Log - HOLD/Do Not Take Losarta/hydrochlorothiazide medication - At home, keep a daily log of blood pressure. Take blood pressure first thing in the morning after you wake up. Log blood pressure for 1-2 weeks and report back to primary care physician (PCP). - If your blood pressure rises prior to follow up with PCP, call your PCP's office. New Medications: - Start taking 81mg Aspirin daily by mouth daily in the morning - Start taking 20 mg Rosuvastatin (Crestor) by mouth daily in the evening <Tanya Melendez APRN - Last Filed: 04/10/25 15:32> Patient Instructions: Antibiotic Form, After Radial Heart Catheterization (GEN) <Tanya Melendez APRN - Last Filed: 04/10/25 15:32> Patient Language: Swedish <Tanya Melendez APRN - Last Filed: 04/10/25 15:32> Stand Alone Forms: General Discharge Information <Tanya Melendez APRN - Last Filed: 04/10/25 15:32> Follow-up/Referrals: Prosper Armenta MD [Physician] - 2 Weeks Dinah Mckenzie DO [Primary Care Provider] - 2 Weeks <Tanya Melendez APRN - Last Filed: 04/10/25 15:32> Discharge Medications: New aspirin 81 mg Tablet,Delayed Release (Dr/Ec) 81 mg PO QAM Qty: 90 0RF rosuvastatin 20 mg Tablet 20 mg PO EVENING Qty: 90 0RF Continued tamsulosin 0.4 mg capsule 0.4 mg PO DAILY Qty: 180 1RF Rx Instructions: take 1-2 capsules daily. Discontinued losartan-hydrochlorothiazide 100-12.5 mg tablet 1 tablet PO DAILY Qty: 90 3RF <Tanya Melendez APRN - Last Filed: 04/10/25 15:32> Date of admission: 04/09/25 14:42 <Tanya Melendez APRN - Last Filed: 04/10/25 15:32> Primary Care Provider: Dinah Mckenzie <Tanya Melendez APRN - Last Filed: 04/10/25 15:32> Admitting Provider: Gucci Lopez <Tanya Melendez APRN - Last Filed: 04/10/25 15:32> Attending physician on admission: Gucci Lopez <Tanya Melendez APRN - Last Filed: 04/10/25 15:32> Condition: Stable <Tanya Melendez APRN - Last Filed: 04/10/25 15:32> Quality VTE Prophylaxis VTE prophylaxis: mechanical ordered <Tanya Melendez APRN - Last Filed: 04/10/25 15:32> mechanical ordered <Arcenio Fortune Student - Last Filed: 04/10/25 15:03>
--- NOTE | 2025-04-10 14:42 | ADMGEN ---
This patient, Prosper Mir, was admitted to IMU Room 214-01. Patient/family oriented to hospital policies and general routines including ID bracelet, bed and alarms, visiting hours, pain management, procedures, bathroom and other care routines, personal items, smoking policy, room service/diet, and visiting hours. Information on how to activate the Rapid Response Team has been discussed. Patient/Family are encouraged to report perceived risks to care and to ask questions if they do not understand what they are told or what they should do.
--- NOTE | 2025-04-10 16:41 | PC.NURSE ---
This patient, Prosper Mir, was received from [cardiac slab inspector ] on 04/10/25 at 1621. Patient/family oriented to unit policies and routines.
[2025-04-10 17:05] LABS: Alanine Aminotransferase 22 U/L (6-50); Albumin Level 2.7 g/dL (3.5-5.1); Alkaline Phosphatase 53 U/L (38-126); Anion Gap 2 mmol/L (4-12); Aspartate Amino Transferase 41 U/L (17-59); Bilirubin,Total 0.6 mg/dL (0.2-1.3); Blood Urea Nitrogen 11 mg/dL (9-20); Calcium 8.2 mg/dL (8.4-10.2); Carbon Dioxide 23 mmol/L (22-30); Chloride 110 mmol/L (98-107); Estimated CRCL calculation 45 ml/min; Estimated Glomerular Filt Rate > 60; Glucose 120 mg/dL (65-110); Potassium 3.7 mmol/L (3.4-5.0); Sodium 135 mmol/L (137-145); Total Protein 5.1 g/dL (6.3-8.2)
[2025-04-10] MEDS: ROSUVASTATIN 20 MG TABLET PO (17:11)
== END 2025-04-10 17:30 | disposition home or self-care (01) | DRG 287 ==
LOC: ANHED 17:22 → ANH2MED 18:26 → ANHIMU 04-10 15:28 → ANH2MED 04-12 10:48 → ANHIMU 04-12 10:48
PROVIDERS: Internal Medicine; Admitting Provider Family Medicine; Emergency Provider Emergency Medicine; PCP Family Medicine; Visit Provider Nurse Practitioner
PROC: 4A023N7 Measurement of Cardiac Sampling and Pressure, Left Heart, Percutaneous Approach (ICD-10-PCS; CPT 93452; principal; 2025-04-10 12:00)
DX: R55 Syncope and collapse (principal); I25.10 Atherosclerotic heart disease of native coronary artery without angina pectoris; R07.9 Chest pain, unspecified; I10 Essential (primary) hypertension; N40.0 Benign prostatic hyperplasia without lower urinary tract symptoms; E78.2 Mixed hyperlipidemia; Z86.16 Personal history of COVID-19
CPT/HCPCS: 36415; 70450; 71046; 71275; 74177; 80053; 82077; 83735; 84443; 84484; 85025; 85027; 93005; 93306; 93458; 96361; 96374; 99285; A9270; C1769; C1887; C1894; G0378; J1644; J2003; J2250; J2305; J3010; J7030; J7040; Q9967

== ENCOUNTER 2025-05-17 13:54 | Emergency (ER) | payer MEDICARE, SELFPAY ==
[2025-05-17] VITALS (32 sets, daily range): BP systolic 95–134; BP diastolic 60–81; PULSE 66–98; RESP 11–24; TEMP 36.5–36.8; O2SAT 94–100
--- NOTE | ~2025-05-17 | XR_ITS ---
EXAMINATION: XR chest 1V portable, 05/17/2025 14:25 CDT HISTORY: chest pain COMPARISON: No comparisons available. Technique: Single view. Findings: The lungs are clear, no effusion. No pneumothorax. Heart is normal size. Mediastinal and hilar contours are within normal limits. Bony thorax no acute abnormality. Impression: No acute cardiopulmonary abnormality. Reviewed, dictated and finalized at location A. Impression: No acute cardiopulmonary abnormality.
--- NOTE | 2025-05-17 13:55 | ECG_ITS ---
Test Date: 2025-05-17 13:59:33 Measurements Intervals [place] Rate: 84 P: 60 TX: 123 QRS: 20 QRSD: 86 T: -57 QT: 387 QTc: 460 Interpretive Statements SINUS RHYTHM WITH ATRIAL AND VENTRICULAR PREMATURE COMPLEXES LOW QRS VOLTAGE IN LIMB LEADS MINIMAL Q WAVES- INFERIOR LEADS ST-T WAVE ABNORMALITY IN ANTEROLAT/INF LEADS- CONSIDER ISCHEMIA BASELINE ARTIFACT- I, II, AVR ABNORMAL ECG Compared to ECG 04/07/2025 14:59:01 Possible ischemia now present Electronically Signed On 05-17-2025 14:37:38 CDT by Rodrigo Pineda D.O.
[2025-05-17 14:12] LABS: Hematocrit 30.7 % (42.0-52.0); Hemoglobin 10.9 g/dL (14.0-18.0); Immature Granulocyte Percent A 0.2 % (0-0.5); Lymphocytes Absolute Auto 1.29 K/mm3 (0.9-3.2); Mean Corpuscular HGB Conc 35.5 g/dl (32-36); Mean Corpuscular Hemoglobin 35.6 pg (26-34); Mean Corpuscular Volume 100.3 fl (80-100); Nucleated Red Blood Cells Absolute Auto 0.000 K/mm3 (0.0-0.012); Nucleated Red Blood Cells Perc 0.0 % (0.0-0.2); Platelet Count Result 179 k/mm3 (150-375); Red Blood Count 3.06 M/mm3 (4.6-6.20); White Blood Count 6.3 K/mm3 (4.5-10.0)
[2025-05-17 14:23] LABS: INR 1.0; Partial Thromboplastin Time 25.3 Seconds (22.3-36.8); Prothrombin Time 13.6 Seconds (11.1-14.7)
[2025-05-17 14:26] LABS: Alanine Aminotransferase 33 U/L (6-50); Albumin Level 3.8 g/dL (3.5-5.1); Alkaline Phosphatase 113 U/L (38-126); Anion Gap 10 mmol/L (4-12); Aspartate Amino Transferase 65 U/L (17-59); Bilirubin,Total 1.5 mg/dL (0.2-1.3); Blood Urea Nitrogen 12 mg/dL (9-20); Calcium 8.8 mg/dL (8.4-10.2); Carbon Dioxide 25 mmol/L (22-30); Chloride 101 mmol/L (98-107); Estimated CRCL calculation 39 ml/min; Estimated Glomerular Filt Rate 59; Glucose 197 mg/dL (65-110); Lipase 111 U/L (23-300); Potassium 2.4 mmol/L (3.4-5.0); Sodium 136 mmol/L (137-145); Total Protein 6.4 g/dL (6.3-8.2)
[2025-05-17 14:36] LABS: Troponin I 0.850 ng/mL (0.000-0.034)
[2025-05-17] MEDS: POTASSIUM CHLORIDE 20 MEQ PACKET (FOR LIQUID) 40 MEQ PO (14:42)
[2025-05-17] MEDS: POTASSIUM CHLORIDE INJ 40 MEQ in SODIUM CHLORIDE 0.9% IV 500 ML 130 MEQ IVPB (14:43)
--- NOTE | 2025-05-17 14:56 | ED.GENADULT ---
HPI - General Adult General Chief complaint: Chest Pain Stated complaint: CP Time Seen by Provider: 05/17/25 14:09 History of Present Illness HPI narrative: This is a 79-year-old male with coronary disease presenting ED with chief complaint of chest pain. Patient states last night 11:00 p.m. new trans sleepy developed a heaviness in the center of his chest which he said felt like an elephant sitting on his chest. It is associated with bilateral arm numbness, nausea vomiting and diaphoresis. He felt like he could not get comfortable and tossed and turned for about 45 minutes until the pain resolves on its own. He then slept through the night but then had another bout of pain at approximately 1:00 p.m. today. That episode lasted approximately 30 minutes before resolving on its own. Patient is currently chest pain free. No other symptoms. He has not followed up with [facility] Cardiology Clinic at Related Data Allergies Allergy/AdvReac Type Severity Reaction Status Date / Time erythromycin base AdvReac Unknown Anxiety Verified 04/05/25 09:48 lisinopril AdvReac Unknown Cough Verified 04/05/25 09:48 [facility] Family History Family History Mother Lung cancer Social History Social History Smoking status: Current every day smoker Tobacco type: cigars Second hand tobacco smoke exposure: No Alcohol intake: never Drinks per week: 6 Substance use: never Substance use type: does not use Do You Feel Safe in your Home?: Yes Lack of Transportation: No Lack of Food: Never True Current Housing: I Have Housing Concerned About Future Housing: No Difficulty Paying Gas/Electric Bills: No Difficulty Paying for Meds: No Currently Unemployed: No Education: High School Diploma/GED Difficulty w/ Childcare or Family Care: No Spiritual care concerns: No Exam Narrative: APPEARANCE: No apparent distress. Head: atraumatic. EYES: EOMI, NOSE: Atraumatic NECK: Trachea midline RESPIRATORY: No increased rate of breathing clear to auscultation CARDIOVASCULAR: RRR, no peripheral edema ABDOMINAL: Non-distended soft nontender MUSCULOSKELETAl: No obvious deformities NEURO: Alert. Moving 4/4 extremities SKIN:: Warm, dry. Normal color PSYCHIATRIC: Normal affect Course Vital Signs Vital signs: Vital Signs Temperature 97.7 F 05/17/25 13:46 Pulse Rate 95 05/17/25 13:46 Respiratory Rate 14 05/17/25 13:46 Blood Pressure 112/67 05/17/25 13:46 Pulse Oximetry 100 05/17/25 13:46 Oxygen Delivery Room Air 05/17/25 13:46 Temperature 97.7 F 05/17/25 13:46 Pulse Rate 98 05/17/25 16:03 Respiratory Rate 16 05/17/25 16:03 Blood Pressure 117/64 05/17/25 16:03 Pulse Oximetry 99 05/17/25 16:03 Oxygen Delivery Room Air 05/17/25 13:46 Medical Decision Making MDM Narrative Medical decision making narrative: -Course: 79-year-old male presenting with 2 episodes of cardiac chest pain. EKG showed using T-wave inversions in 3 AVF, V3, V4. Initial troponin elevated at 0.850. Patient is currently chest pain-free. Cardiology team was consulted the patient will need transfer to [facility] for CABG. Patient placed on heparin. Given aspirin. Patient be transferred [facility]. Patient was accepted by Dr. Augustus STRICKLANDX includes but is not limited to: Angina, unstable angina, NSTEMI, PE, dissection Vital Signs Vital Signs: Vital Signs Temperature 97.7 F 05/17/25 13:46 Pulse Rate 95 05/17/25 13:46 Respiratory Rate 14 05/17/25 13:46 Blood Pressure 112/67 05/17/25 13:46 Pulse Oximetry 100 05/17/25 13:46 Oxygen Delivery Room Air 05/17/25 13:46 Temperature 97.7 F 05/17/25 13:46 Pulse Rate 98 05/17/25 16:03 Respiratory Rate 16 05/17/25 16:03 Blood Pressure 117/64 05/17/25 16:03 Pulse Oximetry 99 05/17/25 16:03 Oxygen Delivery Room Air 05/17/25 13:46 Lab Data 05/17/25 14:05 05/17/25 14:05 Labs: Lab Results 05/17/25 Range/Units 14:05 WBC 6.3 (4.5-10.0) K/mm3 RBC 3.06 L (4.6-6.20) M/mm3 Hgb 10.9 L (14.0-18.0) g/dL Hct 30.7 L (42.0-52.0) % MCV 100.3 H (80-100) fl MCH 35.6 H (26-34) pg MCHC 35.5 (32-36) g/dl RDW 14.4 (11.5-14.5) % Plt Count 179 (150-375) k/mm3 MPV 10.8 H (7.4-10.4) fl Immature Gran % (Auto) 0.2 (0-0.5) % Neut % (Auto) 71.7 (45.5-73.1) % Lymph % (Auto) 20.5 (18.3-44.2) % [place] % (Auto) 6.7 (2.6-8.5) % Eos % (Auto) 0.6 (0-4.4) % Baso % (Auto) 0.3 (0.2-1.2) % Lymph # (Auto) 1.29 (0.9-3.2) K/mm3 [place] # (Auto) 0.4 (0.1-0.6) K/mm3 Eos # (Auto) 0.0 (0-0.3) K/mm3 Baso # (Auto) 0.0 (0.0-0.1) K/mm3 Abs Immat Gran (auto) 0.01 (0.00-0.031) K/mm3 Absolute Neuts (auto) 4.5 (1.3-6.7) K/mm3 Absolute Nucleated RBC 0.000 (0.0-0.012) K/mm3 Nucleated RBC % 0.0 (0.0-0.2) % PT 13.6 (11.1-14.7) Seconds INR 1.0 APTT 25.3 (22.3-36.8) Seconds Sodium 136 L (137-145) mmol/L Potassium 2.4 L* (3.4-5.0) mmol/L Chloride 101 (98-107) mmol/L Carbon Dioxide 25 (22-30) mmol/L Anion Gap 10 (4-12) mmol/L BUN 12 (9-20) mg/dL Creatinine 1.20 (0.7-1.3) mg/dL Estim Creat Clear Calc 39 ml/min Estimated GFR 59 (59 - ) Glucose 197 H (65-110) mg/dL Calcium 8.8 (8.4-10.2) mg/dL Total Bilirubin 1.5 H (0.2-1.3) mg/dL AST 65 H (17-59) U/L ALT 33 (6-50) U/L Alkaline Phosphatase 113 (38-126) U/L Troponin I 0.850 H* (0.000-0.034) ng/mL Total Protein 6.4 (6.3-8.2) g/dL Albumin 3.8 (3.5-5.1) g/dL Lipase 111 (23-300) U/L Critical Care Time Critical Care Time Critical Care Time: Yes Total Critical Care Time: 35 Discharge Plan Discharge Clinical Impression: Non-ST elevation CA (NSTEMI) Patient Disposition: Acute Care Hospital Condition: Stable Patient Language: Canadian Prescriptions: No Action aspirin 81 mg Tablet,Delayed Release (Dr/Ec) 81 mg PO QAM Qty: 90 0RF rosuvastatin 20 mg Tablet 20 mg PO EVENING Qty: 90 0RF tamsulosin 0.4 mg capsule 0.4 mg PO DAILY Qty: 180 1RF Rx Instructions: take 1-2 capsules daily. Follow-up/Referrals: Dinah Mckenzie DO [Primary Care Provider, Family Practice]
[2025-05-17] MEDS: HEPARIN SOD/D5W 100 UNITS/ML 25,000 UNITS/250 ML BAG 7 UNITS IV CONT (15:07)
[2025-05-17 17:43] LABS: Troponin I 0.717 ng/mL (0.000-0.034)
--- NOTE | 2025-05-17 17:45 | ECG_ITS ---
Test Date: 2025-05-17 17:48:58 Measurements Intervals [place] Rate: 74 P: 60 RI: 119 QRS: 7 QRSD: 74 T: -39 QT: 377 QTc: 420 Interpretive Statements SINUS RHYTHM WITH SHORT RI INTERVAL WITH OCCASIONAL SUPRAVENTRICULAR PREMATURE COMPLEXES LOW QRS VOLTAGE IN LIMB LEADS MINIMAL Q WAVES- INFERIOR LEADS BORDERLINE ST-T WAVE ABNORMALITY- ANTEROLAT/INF LEADS BASELINE ARTIFACT- V1, V4-V6 BORDERLINE ECG Compared to ECG 05/17/2025 13:59:33 POSSIBLE ISCHEMIA NO LONGER PRESENT Electronically Signed On 05-17-2025 18:48:10 CDT by Rodrigo Pineda D.O.
--- NOTE | 2025-05-17 18:04 | PC.NURSE ---
Spoke with Tracee from the [facility] transfer center for triage. No beds at this time.
[2025-05-17 20:24] LABS: Troponin I 0.697 ng/mL (0.000-0.034)
[2025-05-17 21:59] LABS: Partial Thromboplastin Time 57.4 Seconds (22.3-36.8)
[2025-05-18] VITALS (37 sets, daily range): BP systolic 105–136; BP diastolic 61–84; PULSE 60–87; RESP 12–19; TEMP 36.9; O2SAT 94–100
[2025-05-18 04:25] LABS: Hematocrit 28.8 % (42.0-52.0); Hemoglobin 10.1 g/dL (14.0-18.0); Immature Granulocyte Percent A 0.3 % (0-0.5); Lymphocytes Absolute Auto 1.91 K/mm3 (0.9-3.2); Mean Corpuscular HGB Conc 35.1 g/dl (32-36); Mean Corpuscular Hemoglobin 36.1 pg (26-34); Mean Corpuscular Volume 102.9 fl (80-100); Nucleated Red Blood Cells Absolute Auto 0.000 K/mm3 (0.0-0.012); Nucleated Red Blood Cells Perc 0.0 % (0.0-0.2); Platelet Count Result 152 k/mm3 (150-375); Red Blood Count 2.80 M/mm3 (4.6-6.20); White Blood Count 6.0 K/mm3 (4.5-10.0)
[2025-05-18 04:40] LABS: Partial Thromboplastin Time 91.4 Seconds (22.3-36.8)
[2025-05-18] MEDS: TAMSULOSIN HCL 0.4 MG CAPSULE PO (04:55)
--- NOTE | 2025-05-18 09:41 | PC.NURSE ---
[facility] [place] transfer center called for an update. states they still do not have any beds available at this time and pt is still on the waitlist.
[2025-05-18 11:12] LABS: Partial Thromboplastin Time 63.7 Seconds (22.3-36.8)
--- NOTE | 2025-05-18 15:47 | PC.NURSE ---
[facility] transfer center called and states pt has been accepted at [facility] room 907. Accepting physician is Dr. Coffman. number to call report is [phone].
[2025-05-18 17:03] LABS: Partial Thromboplastin Time > 200.0 Seconds (22.3-36.8)
== END 2025-05-18 18:24 | disposition short-term general hospital (02) ==
PROVIDERS: Emergency Medicine; Student in an Organized Health Care Education/Training Program; Emergency Provider Emergency Medicine; PCP Family Medicine
DX: I21.4 Non-ST elevation (NSTEMI) myocardial infarction (principal); I25.10 Atherosclerotic heart disease of native coronary artery without angina pectoris; F17.290 Nicotine dependence, other tobacco product, uncomplicated; Z79.82 Long term (current) use of aspirin; Z79.899 Other long term (current) drug therapy; I49.1 Atrial premature depolarization; I49.3 Ventricular premature depolarization; R94.31 Abnormal electrocardiogram [ECG] [EKG]
CPT/HCPCS: 36415; 71045; 80053; 83690; 84484; 85025; 85610; 85730; 93005; 96365; 96366; 96368; 99291; A9270; J1644; J3480; J7040